=== PATIENT | female | born 1960 | race Caucasian/White ===

== ENCOUNTER 2020-06-26 12:05 | Inpatient (IN) | payer BC ==
--- NOTE | 2020-06-26 12:12 | ER Document Report ---
ED General - General Chief Complaint: Breathing Difficulty Stated Complaint: CHEST PAIN/DIFFICULTY BREATHING Time Seen by Provider: 06/26/20 12:10 Notes: Patient is a 60-year-old female with COPD that presents to the emergency department for chief complaint of shortness of breath. Patient started having increased work of breathing this morning, and got progressively worse so EMS was called. Per EMS the patient was found to have a pulse ox of 50% on room air, on their arrival, was placed on nonrebreather, but pulse ox only came up to the high 60s, so she was then placed on CPAP, and she got a pulse ox of 78%, they actually put her on Levophed for a short period of time because her blood pressure was low initially but has since improved. She is unable provide any significant meaningful history at this time due to her acute respiratory distress. Patient's daughter called to the emergency department, to give history and the patient, she apparently was recently in the hospital, and was having issues with aspiration, was placed on a different diet, yesterday she was apparently doing okay, and this started all of a sudden this morning, and she was concerned that she likely aspirated something overnight. Past Medical History: COPD Past Surgical History: Not obtainable at this time Social History: Positive for tobacco use, no alcohol or drug use Family History: Reviewed and noncontributory for presenting illness Allergies: Reviewed, see documented allergy list. REVIEW OF SYSTEMS: Other than noted above, the 12 point review of systems was reviewed with the patient and were negative, all pertinent findings are included in the HPI. PHYSICAL EXAMINATION: Vital signs reviewed, nursing noted reviewed. GENERAL: Patient is in acute respiratory distress at this time, increased work of breathing. HEAD: Atraumatic, normocephalic. EYES: Eyes appear normal, sclera anicteric, conjunctiva are normal. ENT: Moist mucous membranes. NECK: Normal range of motion, supple without lymphadenopathy LUNGS: Lung sounds diminished throughout, no acute wheezing, rhonchi or rales. HEART: Heart rate tachycardic, regular rhythm, no audible murmur EXTREMITIES: Nontender, good range of motion, no pitting or edema. NEUROLOGICAL: No focal neurological deficits. Moves all extremities spontaneously Motor and sensory grossly intact on exam. PSYCH: Patient appears anxious, but somewhat somnolent, and increased work of breathing. SKIN: Warm, Dry, normal turgor, no rashes or lesions noted on exposed skin - Related Data Allergies/Adverse Reactions: No Known Allergies Allergy (Verified 06/26/20 12:13) Past Medical History - Social History Smoking Status: Current Every Day Smoker Family History: Reviewed & Not Pertinent Physical Exam - Vital signs Vitals: BP 97/76 L 06/26/20 12:10 Course - Re-evaluation Re-evalutation: Patient seen and examined, vital signs reviewed, exam patient was in acute respiratory failure requiring noninvasive positive pressure ventilation, was initially hypoxic, 88% on BiPAP, but did improve up to 99%, and was becoming more alert on the BiPAP, she was hypotensive, given fluid bolusing, but was difficult to obtain good IV access, therefore central line was placed, and fluids were continued, prior to starting the patient on any vasopressors. Blood cultures were obtained, patient's lactic acid was elevated, greater than 6, chest x-ray demonstrated what appeared to be an aspiration pneumonitis versus pneumonia, blood work overall was reassuring with the exception of her elevated lactic acid. Her ABG, was improving while on BiPAP. Case was discussed with the hospitalist as well as the intensive care team, who accepted the patient to their service for further evaluation and management. - Vital Signs Vital signs: Temp Pulse Resp BP Pulse Ox 21 H 87/39 L 100 06/26/20 15:31 06/26/20 15:31 06/26/20 15:30 - Laboratory Results Result Diagrams: 06/26/20 12:20 06/26/20 12:20 Laboratory Results Interpreted: 06/26/20 06/26/20 06/26/20 12:20 12:20 12:20 Hgb 11.7 L MCHC 31.8 L RDW 17.5 H Lymph % (Auto) 9.2 L Seg Neutrophils % 82.3 H PT 16.4 H Carbonic Acid ABG pH ABG pCO2 ABG pO2 ABG HCO3 ABG O2 Saturation Creatinine 1.41 H Est GFR ( Amer) 46 L Est GFR (MDRD) Non-Af 38 L Glucose 136 H Lactic Acid NT-Pro-B Natriuret Pep Total Protein 5.9 L Albumin 3.0 L Urine Protein Leukocyte Esterase Rfl 06/26/20 06/26/20 06/26/20 12:20 12:20 12:34 Hgb MCHC RDW Lymph % (Auto) Seg Neutrophils % PT Carbonic Acid 1.39 H ABG pH 7.29 L ABG pCO2 46.2 H ABG pO2 70.4 L ABG HCO3 ABG O2 Saturation 92.2 L Creatinine Est GFR ( Amer) Est GFR (MDRD) Non-Af Glucose Lactic Acid 6.4 H NT-Pro-B Natriuret Pep 2020 H Total Protein Albumin Urine Protein Leukocyte Esterase Rfl 06/26/20 06/26/20 14:05 14:15 Hgb MCHC RDW Lymph % (Auto) Seg Neutrophils % PT Carbonic Acid ABG pH 7.29 L ABG pCO2 ABG pO2 141.6 H ABG HCO3 19.9 L ABG O2 Saturation 98.5 H Creatinine Est GFR ( Amer) Est GFR (MDRD) Non-Af Glucose Lactic Acid NT-Pro-B Natriuret Pep Total Protein Albumin Urine Protein 100 H Leukocyte Esterase Rfl TRACE H Critical Laboratory Results Reviewed: Yes Attending or Supervising Physician who Reviewed Labs: Dr. Enriquez - Radiology Results Critical Radiology Results Reviewed: Yes Attending or Supervising Physician who Reviewed Radiology: Dr. Enriquez Procedures - Central Line Right Internal jugular Consent obtained: Yes Central line pre-insertion: Sterile PPE donned, Chloraprep applied Central line size (Fr.): 7 Central line lumen type: Triple Anesthetic type: 1% Lidocaine Ultrasound guided: Yes CM at insertion site: 19 Line secured with sutures: Yes Central line post-insertion: Blood return from lumens, Biopatch applied, Sutured, Sterile dressing applied, Position confirmed w/ CXR Number of attempts: 1 Complications: No Critical Care Note - Critical Care Note Total time excluding time spent on procedures (mins): 38 Comments: Critical care time 38 minutes exclusive from separate billable procedures in a patient presenting is hypertensive and acute respiratory failure requiring noninvasive positive pressure ventilation, and requiring fluid resuscitation, and central line placement, discussion with multiple consultants, and ultimately admission to the hospital. Discharge - Discharge Clinical Impression: Sepsis Qualifiers: Sepsis type: sepsis due to unspecified organism Sepsis acute organ dysfunction status: unspecified Qualified Code(s): A41.9 - Sepsis, unspecified organism Acute respiratory failure Qualifiers: Respiratory failure complication: hypoxia Qualified Code(s): J96.01 - Acute respiratory failure with hypoxia Hypotension Qualifiers: Hypotension type: unspecified hypotension type Qualified Code(s): I95.9 - Hypotension, unspecified Pneumonia Qualifiers: Pneumonia type: due to unspecified organism Laterality: right Lung location: unspecified part of lung Qualified Code(s): J18.9 - Pneumonia, unspecified organism Condition: Serious Disposition: ADMITTED INPATIENT Admitting Provider: Ani (Quantitative Strategy Analyst) Unit Admitted: ICU
[2020-06-26] MEDS ORDERED: METHYLPREDNISOLONE INJ 125 MG/2 ML SDV IV ONE (12:32)
[2020-06-26] MEDS ORDERED: TERBUTALINE SULFATE INJ/PF 1 MG/1 ML SDV SUBCUT ONE (12:33)
[2020-06-26] MEDS ORDERED: MAGNESIUM SULFATE/D5W 1 GM/100 ML RTUPB IV ONE (12:34)
[2020-06-26] MEDS ORDERED: CEFEPIME 2 GM/D5W RTU 2 GM/50 ML RTUPB IV ONE (12:42)
[2020-06-26] MEDS ORDERED: VANCOMYCIN HCL INJ 1000 MG VIAL IV ONE (12:42)
--- NOTE | 2020-06-26 12:53 | RADIOLOGY REPORT (SQ) ---
EXAM DESCRIPTION: CHEST SINGLE VIEW IMAGES COMPLETED DATE/TIME: 06/26/2020 12:43 pm REASON FOR STUDY: dyspnea COMPARISON: None. EXAM PARAMETERS: NUMBER OF VIEWS: One view. TECHNIQUE: Single frontal radiographic view of the chest acquired. RADIATION DOSE: NA LIMITATIONS: None. FINDINGS: LUNGS AND PLEURA: There is extensive right-sided airspace disease. Findings are consisten t with pneumonia. Left lung field is clear. The left lung field is mildly hyperexpanded. MEDIASTINUM AND HILAR STRUCTURES: No masses. Contour normal. HEART AND VASCULAR STRUCTURES: Heart normal in size. Normal vasculature. BONES: No acute findings. HARDWARE: None in the chest. OTHER: No other significant finding. IMPRESSION: Extensive right-sided airspace disease most likely viral pneumonitis. TECHNICAL DOCUMENTATION: JOB ID: [id number] 2010 [employer]- All Rights Reserved Reading location - IP/workstation name: [email or web address]
[2020-06-26 12:56] LABS: ARTERIAL BLOOD BASE EXCESS -4.9 mmol/L; ARTERIAL BLOOD H2CO3 1.39 mmol/L (1.05-1.35); ARTERIAL BLOOD HCO3 21.7 mmol/L (20-24); ARTERIAL BLOOD O2 SATURATION 92.2 % (94-98); ARTERIAL BLOOD PCO2 46.2 mmHg (35-45); ARTERIAL BLOOD PH 7.29 (7.35-7.45); ARTERIAL BLOOD PO2 70.4 mmHg (80-100); ARTERIAL BLOOD TOTAL CO2 23.1 mmol/L (21-25)
[2020-06-26 13:03] LABS: PROTHROMBIN TIME 16.4 SEC (11.4-15.4)
[2020-06-26 13:05] LABS: ARTERIAL BLOOD FIO2 100%
[2020-06-26 13:12] LABS: ABSOLUTE LYMPHOCYTES (AUTO) 0.9 10^3/uL (0.5-4.7); ABSOLUTE MONOCYTES (AUTO) 0.8 10^3/uL (0.1-1.4); ABSOLUTE NEUT (AUTO) 7.8 10^3/uL (1.7-8.2); BASOPHILS % (AUTO) 0.3 % (0-2); HEMATOCRIT 36.8 % (36.0-47.0); HEMOGLOBIN 11.7 g/dL (12.0-15.5); LYMPHOCYTES % (AUTO) 9.2 % (13-45); MEAN CORPUSCULAR HEMOGLOBIN 27.6 pg (27.0-33.4); MEAN CORPUSCULAR HGB CONC 31.8 g/dL (32.0-36.0); MEAN CORPUSCULAR VOLUME 87 fl (80-97); MONOCYTES % (AUTO) 8.2 % (3-13); PLATELET COUNT 338 10^3/uL (150-450); RED BLOOD COUNT 4.22 10^6/uL (3.72-5.28); RED CELL DISTRIBUTION WIDTH 17.5 % (11.5-14.0); SEGMENTED NEUTROPHILS % (AUTO) 82.3 % (42-78); TOTAL CELLS COUNTED % (AUTO) 100 %; WHITE BLOOD COUNT 9.5 10^3/uL (4.0-10.5)
[2020-06-26] MEDS ORDERED: NORMAL SALINE 1000 ML 1,000 ML IV ONE ×2 (13:14→16:44)
[2020-06-26 13:25] LABS: ALKALINE PHOSPHATASE 92 U/L (38-126); ANION GAP 13 (5-19); ASPARTATE AMINO TRANSFERASE 29 U/L (14-36); BILIRUBIN,DIRECT 0.2 mg/dL (0.0-0.4); BILIRUBIN,TOTAL 0.6 mg/dL (0.2-1.3); BLOOD UREA NITROGEN 20 mg/dL (7-20); CALCIUM 8.8 mg/dL (8.4-10.2); CARBON DIOXIDE 24 mmol/L (22-30); CHLORIDE 101 mmol/L (98-107); GLUCOSE 136 mg/dL (75-110); POTASSIUM 4.6 mmol/L (3.6-5.0); TOTAL PROTEIN 5.9 g/dL (6.3-8.2)
[2020-06-26] MEDS ORDERED: RINGERS SOLUTION,LACTATED 1,000 ML IV ONE ×2 (13:35→15:13)
[2020-06-26 13:39] LABS: A TYPE INFLUENZA AG NEGATIVE (NEGATIVE); B INFLUENZA AG NEGATIVE (NEGATIVE)
[2020-06-26 14:04] LABS: TROPONIN I 0.036 ng/mL
[2020-06-26 14:28] LABS: ARTERIAL BLOOD BASE EXCESS -6.4 mmol/L; ARTERIAL BLOOD H2CO3 1.29 mmol/L (1.05-1.35); ARTERIAL BLOOD HCO3 19.9 mmol/L (20-24); ARTERIAL BLOOD O2 SATURATION 98.5 % (94-98); ARTERIAL BLOOD PCO2 42.9 mmHg (35-45); ARTERIAL BLOOD PH 7.29 (7.35-7.45); ARTERIAL BLOOD PO2 141.6 mmHg (80-100); ARTERIAL BLOOD TOTAL CO2 21.3 mmol/L (21-25)
[2020-06-26 14:29] LABS: ARTERIAL BLOOD FIO2 100%
[2020-06-26 14:45] LABS: APPEARANCE,URINE CLOUDY; BILIRUBIN,URINE NEGATIVE (NEGATIVE); GLUCOSE, URINE NEGATIVE (NEGATIVE); KETONES,URINE NEGATIVE (NEGATIVE); PROTEIN,URINE 100 mg/dL (NEGATIVE); UROBILINOGEN,URINE NEGATIVE mg/dL (<2.0)
[2020-06-26 14:47] LABS: COLOR,URINE DARK YELLOW
--- NOTE | 2020-06-26 15:16 | EKG REPORT ---
SEVERITY:- OTHERWISE NORMAL ECG - SINUS TACHYCARDIA : Confirmed by: Duke Valle MD 26-Jun-2020 15:16:13
--- NOTE | 2020-06-26 15:32 | RADIOLOGY REPORT (SQ) ---
EXAM DESCRIPTION: CHEST SINGLE VIEW IMAGES COMPLETED DATE/TIME: 06/26/2020 3:18 pm REASON FOR STUDY: er t1 central line placement COMPARISON: Earlier the same day EXAM PARAMETERS: NUMBER OF VIEWS: One view. TECHNIQUE: Single frontal radiographic view of the chest acquired. RADIATION DOSE: NA LIMITATIONS: None. FINDINGS: LUNGS AND PLEURA: A right-sided central line has been placed. Tip overlies the SVC right atrial junction. No pneumothorax. Persistent diffuse right-sided airspace disease. Possible develo ping left lower lobe infiltrate. MEDIASTINUM AND HILAR STRUCTURES: Stable. HEART AND VASCULAR STRUCTURES: Stable. BONES: No acute findings. HARDWARE: None in the chest. OTHER: No other significant finding. IMPRESSION: Interval placement a right-sided central line as described. No pneumothorax. Persisten t diffuse right-sided airspace disease. TECHNICAL DOCUMENTATION: JOB ID: [id number] 2010 [employer]- All Rights Reserved Reading location - IP/workstation name: [email or web address]
[2020-06-26] MEDS ORDERED: DEXTROSE 5%-WATER 250 ML with NOREPINEPHRINE BITARTRATE 4 MG IV PRN ×2 (16:16)
[2020-06-26] MEDS ORDERED: VANCOMYCIN HCL 0 MG in DEXTROSE 5%-WATER 250 ML IV NR (17:00)
[2020-06-26] MEDS ORDERED: NORMAL SALINE 1000 ML 3,000 ML IV ONE (17:43)
[2020-06-26] MEDS: PIPERACILLIN SODIUM/TAZOBACTAM 4.5 GM in NORMAL SALINE 100 ML IV SCH (18:13)
--- NOTE | 2020-06-26 18:18 | PDOC CONSULTATION ---
Consultation Consult Date: 06/26/20 Attending physician:: GAYATHRI VALLES Provider Consulted: HALIE DUGGAN Consult reason:: admission History of Present Illness Admission Date/PCP: 06/26/20 15:17 History of Present Illness: TRINI NORRIS is a 60 year old female with PMH of COPD on home 2 L O2 (PRN), dysphagia, seizure disorder, and recent prolonged hospitalization at [facility] for aspiration pneumonia requiring intubation (reportedly discharged about 1 week ago) who presented to the ED with shortness of breath. She tells me that, since her discharge from [facility], she has been seeing PICK PULLING MACHINE OPERATOR and has been on a strict diet of mechanical soft foods with thickened fluids. She has had no known episodes of choking or coughing after eating. She tells me that she has been adhering to her diet. She has been having progressively worsening SOB and pleuritic R-sided chest pain since 06/23/2020. She has no known sick contacts. Denies fevers/chills. States that her chronic cough is unchanged from usual and she has not had productive cough. She otherwise denies abdominal pain, diarrhea, vomiting, dysuria. She reports normal oral intake at home. Today, she felt like she just could not catch her breath so she called EMS. Per EMS, she was found to have a pulse ox of 50% on room air on their arrival, so she was placed on non-rebreather, but pulse ox only came up to the high 60s, so she was then placed on CPAP. EMS also started her on Levophed due to hypotension. Upon arrival to the ED, she was in severe acute respiratory distress, and was p laced on BIPAP. Initially, her BP was 90/60, so she was referred to the hospitalist service for admission, but upon my arrival, her BP was 60/30. She was started on sepsis protocol IVF hydration and Levophed was ordered but never started. Her BPs have since improved to 80/40 (MAP 50). ABG has improved with BIPAP as has her mentation, but her lactate has remained unchanged ~6. No other laboratory studies have been rechecked during her stay in the ED. BCx and UCx are pending. She received vancomycin/cefepime, Solu-Medrol and 3 L IVF. Past Medical History Cardiac Medical History: Reports: Hyperlipidema Pulmonary Medical History: Reports: Chronic Obstructive Pulmonary Disease (COPD) Neurological Medical History: Reports: Seizures, Other Endocrine Medical History: Reports: Hypothyroidism GI Medical History: Reports: Gastroesophageal Reflux Disease Past Surgical History Past Surgical History: Reports: Cholecystectomy, Other - brain aneurysm repair (1984) Social History Information Source: Patient Lives with: Family Smoking Status: Current Every Day Smoker - Advance Directive Resuscitation Status: Full Code Family History Family History: Reviewed & Not Pertinent Parental Family History Reviewed: Yes Children Family History Reviewed: Yes Sibling(s) Family History Reviewed.: Yes Medication/Allergy Home Medications: Albuterol Sulfate [Proair HFA Inhalation Aerosol 8.5 gm MDI] 2 puff IH Q6HP PRN 06/26/20 Alprazolam 1 mg PO TIDP PRN 06/26/20 Aspirin 81 mg PO DAILY 06/26/20 Fluticasone/Umeclidin/Vilanter [Trelegy 100-62.5-25 Mcg Ellipta 14 Dose/Dpi] 1 puff IH DAILY 06/26/20 Furosemide [Lasix 40 mg Tablet] 40 mg PO DAILY 06/26/20 Lamotrigine 100 mg PO QAM 06/26/20 Lamotrigine 150 mg PO QPM 06/26/20 Levothyroxine Sodium [Levothyroxine] 50 mcg PO DAILY 06/26/20 Pantoprazole Sodium 40 mg PO DAILY 06/26/20 Potassium Chloride 20 meq PO DAILY 06/26/20 Pravastatin Sodium 40 mg PO QHS 06/26/20 Quetiapine Fumarate [Seroquel] 100 mg PO QHS 06/26/20 Allergies/Adverse Reactions: No Known Allergies Allergy (Verified 06/26/20 12:13) Review of Systems Constitutional: PRESENT: weakness. ABSENT: fever(s) Nose, Mouth, and Throat: ABSENT: sore throat Cardiovascular: ABSENT: chest pain, orthropnea, palpitations Respiratory: PRESENT: cough - chronic, dyspnea. ABSENT: sputum Gastrointestinal: ABSENT: abdominal pain, diarrhea, vomiting Genitourinary: ABSENT: dysuria Neurological: ABSENT: dizziness, focal weakness Physical Exam Vital Signs: Temp Pulse Resp BP Pulse Ox 21 H 81/42 L 90 L 06/26/20 17:19 06/26/20 17:19 06/26/20 17:19 Intake & Output 06/25/20 06/26/20 06/27/20 06:59 06:59 06:59 Intake Total 3150 Balance 3150 Weight 90 kg Results Laboratory Results: 06/26/20 12:20 06/26/20 12:20 06/26/20 06/26/20 06/26/20 12:20 12:20 12:20 WBC 9.5 RBC 4.22 Hgb 11.7 L Hct 36.8 MCV 87 MCH 27.6 MCHC 31.8 L RDW 17.5 H Plt Count 338 Seg Neutrophils % 82.3 H Carbonic Acid HCO3/H2CO3 Ratio ABG pH ABG pCO2 ABG pO2 ABG HCO3 ABG O2 Saturation ABG Base Excess FiO2 Sodium 137.6 Potassium 4.6 Chloride 101 Carbon Dioxide 24 Anion Gap 13 BUN 20 Creatinine 1.41 H Est GFR ( Amer) 46 L Glucose 136 H Lactic Acid 6.4 H Calcium 8.8 Total Bilirubin 0.6 AST 29 Alkaline Phosphatase 92 Total Protein 5.9 L Albumin 3.0 L Urine Color Urine Appearance Urine pH Ur Specific [place] Urine Protein Urine Glucose (UA) Urine Ketones Urine Blood Urine RBC (Auto) 06/26/20 06/26/20 06/26/20 12:34 14:05 14:15 WBC RBC Hgb Hct MCV MCH MCHC RDW Plt Count Seg Neutrophils % Carbonic Acid 1.39 H 1.29 HCO3/H2CO3 Ratio 15:1 15:1 ABG pH 7.29 L 7.29 L ABG pCO2 46.2 H 42.9 ABG pO2 70.4 L 141.6 H ABG HCO3 21.7 19.9 L ABG O2 Saturation 92.2 L 98.5 H ABG Base Excess -4.9 -6.4 FiO2 100% 100% Sodium Potassium Chloride Carbon Dioxide Anion Gap BUN Creatinine Est GFR ( Amer) Glucose Lactic Acid Calcium Total Bilirubin AST Alkaline Phosphatase Total Protein Albumin Urine Color DARK YELLOW Urine Appearance CLOUDY Urine pH 5.0 Ur Specific [place] 1.020 Urine Protein 100 H Urine Glucose (UA) NEGATIVE Urine Ketones NEGATIVE Urine Blood NEGATIVE Urine RBC (Auto) 4 06/26/20 15:19 WBC RBC Hgb Hct MCV MCH MCHC RDW Plt Count Seg Neutrophils % Carbonic Acid HCO3/H2CO3 Ratio ABG pH ABG pCO2 ABG pO2 ABG HCO3 ABG O2 Saturation ABG Base Excess FiO2 Sodium Potassium Chloride Carbon Dioxide Anion Gap BUN Creatinine Est GFR ( Amer) Glucose Lactic Acid 6.0 H Calcium Total Bilirubin AST Alkaline Phosphatase Total Protein Albumin Urine Color Urine Appearance Urine pH Ur Specific [place] Urine Protein Urine Glucose (UA) Urine Ketones Urine Blood Urine RBC (Auto) 06/26/20 12:20 Troponin I 0.036 NT-Pro-B Natriuret Pep 2020 H Impressions: Chest X-Ray 06/26/20 12:11 IMPRESSION: Extensive right-sided airspace disease most likely viral pneumonitis. Assessment and Plan - Diagnosis (1) Acute respiratory failure with hypoxia and hypercapnia Is this a current diagnosis for this admission?: Yes (2) Septic shock Is this a current diagnosis for this admission?: Yes (3) ALEXIS (acute kidney injury) Is this a current diagnosis for this admission?: Yes (4) NSTEMI (non-ST elevated myocardial infarction) Is this a current diagnosis for this admission?: Yes (5) Lactic acidosis Is this a current diagnosis for this admission?: Yes (6) COPD (chronic obstructive pulmonary disease) Is this a current diagnosis for this admission?: Yes (7) Hypotension Qualifiers: Hypotension type: unspecified hypotension type Qualified Code(s): I95.9 - Hypotension, unspecified Is this a current diagnosis for this admission?: Yes (8) Pneumonia Qualifiers: Pneumonia type: due to unspecified organism Laterality: right Lung location: unspecified part of lung Qualified Code(s): J18.9 - Pneumonia, unspecified organism Is this a current diagnosis for this admission?: Yes - Plan Summary Summary: TRINI NORRIS is a 60 year old female with PMH of COPD on home 2 L O2 (PRN), dysphagia, seizure disorder, and recent prolonged hospitalization at [facility] for aspiration pneumonia requiring intubation (reportedly discharged about 1 week ago) who presented to the ED with shortness of breath. She tells me that, since her discharge from [facility], she has been seeing PICK PULLING MACHINE OPERATOR and has been on a strict diet of mechanical soft foods with thickened fluids. She has had no known episodes of choking or coughing after eating. She tells me that she has been adhering to her diet. She has been having progressively wor sening SOB and pleuritic R-sided chest pain since 06/23/2020. She has no known sick contacts. Denies fevers/chills. States that her chronic cough is unchanged from usual and she has not had productive cough. She otherwise denies abdominal pain, diarrhea, vomiting, dysuria. She reports normal oral intake at home. Acute Hypoxemic and Hypercapnic Respiratory Failure: improving - discontinue BIPAP - she is saturating ~90% on 6 L O2 via NC during my visit - wean O2 as tolerated - goal O2 saturation: 89-90% Septic Shock: she presented with tachycardia, tachypnea, hypotension and lactic acidosis. Her hypotension is persistent despite appropriate IVF resuscitation. Will recheck lactate again, but if it remains elevated with low MAPs, she needs to be started on vasopressors. Healthcare Acquired Pneumonia: evidence of R-sided lung infiltrate on CXR, unclear if this is acute or old since last hospitalization - BCx and UCx pending - start broad spectrum antibiotics with Zosyn/Vancomycin Lactic Acidosis - s/p 3 L IVF without a change in lactate and minimal improvement in BP - I have ordered another 4 L NS bolus as well as repeat lactate - consider initiation of Levophed Dysphagia: at risk for aspiration - NPO - PICK PULLING MACHINE OPERATOR consult ALEXIS: baseline kidney function is unknown, but I believe elevated Cr is related to ATN/hypoperfusion - IVF as per above NSTEMI: she denies chest pain/pressure and has no ischemic changes on EKG. Likely demand ischemia in the s/o sepsis. - trend troponin - telemetry Medical records requested from [facility]. Case discussed with ED and Peer Support Specialist. Unfortunately, I can not take this patient to the IMCU with MAPs in the 50s at this time. She is improving and I am hopeful that BP will improve over the next few hours. Repeat labs ordered. We will continue to follow along and help with management as needed. Please call with any questions or concerns. - Time Time Spent with patient: 35 or more minutes Anticipated Discharge Disposition: Home with Home Health Anticipated Discharge Timeframe: within 72 hours
--- NOTE | 2020-06-26 18:50 | RADIOLOGY REPORT (SQ) ---
EXAM DESCRIPTION: CT CHEST WITHOUT IMAGES COMPLETED DATE/TIME: 06/26/2020 6:38 pm REASON FOR STUDY: respiratory failure COMPARISON: None. TECHNIQUE: CT scan performed of the chest without intravenous contrast. Images reviewed with lung, soft tissue and bone windows. Reconstructed coronal and sagittal MPR images reviewed. All images st ored on PACS. All CT scanners at this facility use dose modulation, iterative reconstruction, and/or weight based d osing when appropriate to reduce radiation dose to as low as reasonably achievable (ALARA). [facility]: Dose Right [facility]: CareDose [facility]: Dose Right [facility]: Teradose 4D [facility]: [employer] RADIATION DOSE: CT Rad equipment meets quality standard of care and radiation dose reduction techniq ues were employed. CTDIvol: 12.5 mGy. DLP: 458 mGy-cm. mGy. LIMITATIONS: No technical limitations. FINDINGS: LUNGS AND PLEURA: Extensive ground-glass infiltrates and denser infiltrates in the right l robbie both upper and lower lobes. There are couple of small peripheral areas of ground-glass infiltrat e on the left. Small right pleural effusion. HILAR AND MEDIASTINAL STRUCTURES: No identified masses or abnormal nodes. No obvious aneurysm. HEART AND VASCULAR STRUCTURES: No aneurysm. No pericardial effusion. UPPER ABDOMEN: No significant findings. Limited exam. THYROID AND OTHER SOFT TISSUES: No masses. No adenopathy. BONES: Bold sternal fracture with apparent nonunion. HARDWARE: None in the chest. OTHER: No other significant findings. IMPRESSION: Bilateral pneumonia much more extensive on the right. Cannot exclude COVID-19 pneumonia although the presence of a pleural effusion is not typical. TECHNICAL DOCUMENTATION: JOB ID: [id number] Quality ID # [id number]: Final reports with documentation of one or more dose reduction techniques (e.g., Au tomated exposure control, adjustment of the mA and/or kV according to patient size, use of iterative reconstruction technique) 2010 [employer]- All Rights Reserved Reading location - IP/workstation name: [email or web address]
[2020-06-26] MEDS: IPRATROPIUM/ALBUTEROL 0.5-2.5 MG/3 ML AMPUL NEB SCH (20:11)
[2020-06-26 21:11] LABS: HEMATOCRIT 31.6 % (36.0-47.0); HEMOGLOBIN 9.9 g/dL (12.0-15.5); MEAN CORPUSCULAR HEMOGLOBIN 27.8 pg (27.0-33.4); MEAN CORPUSCULAR HGB CONC 31.5 g/dL (32.0-36.0); MEAN CORPUSCULAR VOLUME 89 fl (80-97); PLATELET COUNT 191 10^3/uL (150-450); RED BLOOD COUNT 3.57 10^6/uL (3.72-5.28); RED CELL DISTRIBUTION WIDTH 17.4 % (11.5-14.0); WHITE BLOOD COUNT 10.9 10^3/uL (4.0-10.5)
[2020-06-26 21:19] LABS: VENOUS BLOOD BASE EXCESS -7.5 mmol/L; VENOUS BLOOD HCO3 20.3 mmol/L (20-32); VENOUS BLOOD PCO2 51.7 mmHg (35-63); VENOUS BLOOD PH 7.21 (7.30-7.42)
[2020-06-26 21:34] LABS: ALBUMIN 2.3 g/dL (3.5-5.0); ALKALINE PHOSPHATASE 67 U/L (38-126); ANION GAP 8 (5-19); ASPARTATE AMINO TRANSFERASE 24 U/L (14-36); BILIRUBIN,DIRECT 0.1 mg/dL (0.0-0.4); BILIRUBIN,TOTAL 0.4 mg/dL (0.2-1.3); BLOOD UREA NITROGEN 17 mg/dL (7-20); CALCIUM 7.4 mg/dL (8.4-10.2); CARBON DIOXIDE 20 mmol/L (22-30); CHLORIDE 108 mmol/L (98-107); GLUCOSE 154 mg/dL (75-110); TOTAL PROTEIN 4.8 g/dL (6.3-8.2)
[2020-06-26 21:46] LABS: C-REACTIVE PROTEIN 140.9 mg/L (<10.0); CREATINE KINASE < 20 U/L (30-135)
[2020-06-26 21:47] LABS: ERYTHROCYTE SEDIMENTATION RATE 33 mm/hr (0-30)
[2020-06-27] MEDS ORDERED: ACETAMINOPHEN 325 MG TABLET PO PRN (00:16)
[2020-06-27] MEDS ORDERED: IPRATROPIUM/ALBUTEROL 0.5-2.5 MG/3 ML AMPUL NEB PRN (00:16)
[2020-06-27] MEDS ORDERED: PROMETHAZINE HCL INJ 25 MG/1 ML VIAL IV PRN (00:16)
[2020-06-27] MEDS ORDERED: ONDANSETRON HCL INJ/PF 4 MG/2 ML SDV IV PRN (00:16)
[2020-06-27] MEDS ORDERED: MAG HYDROX/AL HYDROX/SIMETH SUSP 30 ML UDCUP PO PRN (00:16)
[2020-06-27] MEDS ORDERED: TEMAZEPAM 7.5 MG CAPSULE PO PRN (00:16)
[2020-06-27] MEDS ORDERED: PIPERACILLIN/TAZOBACTAM 4.5 GM VIAL IV ONE (00:33)
[2020-06-27] MEDS: PIPERACILLIN SODIUM/TAZOBACTAM 4.5 GM in NORMAL SALINE 100 ML IV SCH ×5 (00:41→20:32)
[2020-06-27] MEDS: DEXTROSE 5%-1/2 NORMAL SALINE 1,000 ML IV PRN ×2 (00:42→14:51)
[2020-06-27] MEDS: IPRATROPIUM/ALBUTEROL 0.5-2.5 MG/3 ML AMPUL NEB SCH ×4 (00:43→19:28)
[2020-06-27] MEDS: ALPRAZOLAM 0.5 MG TABLET PO PRN ×2 (02:20→16:30)
[2020-06-27] MEDS: HEPARIN SOD (PORCINE) 5,000 UNIT/ML 1 ML VIAL SUBCUT SCH ×3 (07:24→21:17)
[2020-06-27] MEDS: LEVOTHYROXINE SODIUM 0.05 MG TABLET PO SCH (07:24)
--- NOTE | 2020-06-27 07:25 | PDOC H&P ---
History of Present Illness Admission Date/PCP: 06/26/20 15:17 History of Present Illness: As per consulting hospitalist note from the same day TRINI NORRIS is a 60 year old female with PMH of COPD on home 2 L O2 (PRN), dysphagia, seizure disorder, and recent prolonged hospitalization at [facility] for aspiration pneumonia requiring intubation (reportedly discharged about 1 week ago) who presented to the ED with shortness of breath. She tells me that, since her discharge from [facility], she has been seeing PUBLIC WORKS TECHNICIAN and has been on a strict diet of mechanical soft foods with thickened fluids. She has had no known episodes of choking or coughing after eating. She tells me that she has been adhering to her diet. She has been having progressively worsening SOB and pleu ritic R-sided chest pain since 06/23/2020. She has no known sick contacts. Denies fevers/chills. States that her chronic cough is unchanged from usual and she has not had productive cough. She otherwise denies abdominal pain, diarrhea, vomiting, dysuria. She reports normal oral intake at home. Today, she felt like she just could not catch her breath so she called EMS. Per EMS, she was found to have a pulse ox of 50% on room air on their arrival, so she was placed on non-rebreather, but pulse ox only came up to the high 60s, so she was then placed on CPAP. EMS also started her on Levophed due to hypotension. Upon arrival to the ED, she was in severe acute respiratory distress, and was placed on BIPAP. Initially, her BP was 90/60, so she was referred to the hospitalist service for admission, but upon my arrival, her BP was 60/30. She was started on sepsis protocol IVF hydration and Levophed was ordered but never started. Her BPs have since improved to 80/40 (MAP 50). ABG has improved with BIPAP as has her mentation, but her lactate has remained unchanged ~6. No other laboratory studies have been rechecked during her stay in the ED. BCx and UCx are pending. She received vancomycin/cefepime, Solu-Medrol and 3 L IVF. Past Medical History Cardiac Medical History: Reports: Hyperlipidema Pulmonary Medical History: Reports: Chronic Obstructive Pulmonary Disease (COPD) Neurological Medical History: Reports: Seizures, Other Endocrine Medical History: Reports: Hypothyroidism GI Medical History: Reports: Gastroesophageal Reflux Disease Psychiatric Medical History: Denies: Depression Past Surgical History Past Surgical History: Reports: Cholecystectomy, Other - brain aneurysm repair (1984) Social History Lives with: Family Smoking Status: Former Smoker - Advance Directive Resuscitation Status: Full Code Family History Family History: Reviewed & Not Pertinent Parental Family History Reviewed: Yes Children Family History Reviewed: Yes Sibling(s) Family History Reviewed.: Yes Medication/Allergy Home Medications: Albuterol Sulfate [Proair HFA Inhalation Aerosol 8.5 gm MDI] 2 puff IH Q6HP PRN 06/26/20 Alprazolam 1 mg PO TIDP PRN 06/26/20 Aspirin 81 mg PO DAILY 06/26/20 Fluticasone/Umeclidin/Vilanter [Trelegy 100-62.5-25 Mcg Ellipta 14 Dose/Dpi] 1 puff IH DAILY 06/26/20 Furosemide [Lasix 40 mg Tablet] 40 mg PO DAILY 06/26/20 Lamotrigine 100 mg PO QAM 06/26/20 Lamotrigine 150 mg PO QPM 06/26/20 Levothyroxine Sodium [Levothyroxine] 50 mcg PO DAILY 06/26/20 Pantoprazole Sodium 40 mg PO DAILY 06/26/20 Potassium Chloride 20 meq PO DAILY 06/26/20 Pravastatin Sodium 40 mg PO QHS 06/26/20 Quetiapine Fumarate [Seroquel] 100 mg PO QHS 06/26/20 Allergies/Adverse Reactions: No Known Allergies Allergy (Verified 06/26/20 12:13) Review of Systems Review of Systems: as per hpi Physical Exam Vital Signs: Temp Pulse Resp BP Pulse Ox 98.3 F 117 H 30 H 125/62 93 06/27/20 03:11 06/27/20 03:15 06/27/20 04:30 06/27/20 03:11 06/27/20 04:30 Intake & Output 06/26/20 06/27/20 06/28/20 06:59 06:59 06:59 Intake Total 7150 Output Total 2900 Balance 4250 Weight 91.6 kg General appearance: PRESENT: no acute distress, obese, well-developed, well- nourished Head exam: PRESENT: atraumatic, normocephalic Respiratory exam: PRESENT: decreased breath sounds, tachypnea. ABSENT: rales, rhonchi, wheezes Cardiovascular exam: PRESENT: RRR, tachycardia. ABSENT: diastolic murmur, rubs, systolic murmur GI/Abdominal exam: PRESENT: normal bowel sounds, soft. ABSENT: distended, guarding, mass, organolmegaly, rebound, tenderness Neurological exam: PRESENT: alert, awake, oriented to person, oriented to place, oriented to time, oriented to situation, CN II-XII grossly intact. ABSENT: motor sensory deficit Results Laboratory Results: 06/26/20 20:43 06/26/20 20:43 06/26/20 06/26/20 06/26/20 12:20 12: 12:20 WBC 9.5 RBC 4.22 Hgb 11.7 L Hct 36.8 MCV 87 MCH 27.6 MCHC 31.8 L RDW 17.5 H Plt Count 338 Seg Neutrophils % 82.3 H Carbonic Acid HCO3/H2CO3 Ratio ABG pH ABG pCO2 ABG pO2 ABG HCO3 ABG O2 Saturation ABG Base Excess VBG pH VBG pCO2 VBG HCO3 VBG Base Excess FiO2 Sodium 137.6 Potassium 4.6 Chloride 101 Carbon Dioxide 24 Anion Gap 13 BUN 20 Creatinine 1.41 H Est GFR ( Amer) 46 L Glucose 136 H Lactic Acid 6.4 H Calcium 8.8 Magnesium Ferritin Total Bilirubin 0.6 AST 29 Alkaline Phosphatase 92 C-Reactive Protein Total Protein 5.9 L Albumin 3.0 L Urine Color Urine Appearance Urine pH Ur Specific [place] Urine Protein Urine Glucose (UA) Urine Ketones Urine Blood Urine RBC (Auto) 06/26/20 06/26/20 06/26/20 12:34 14:05 14:15 WBC RBC Hgb Hct MCV MCH MCHC RDW Plt Count Seg Neutrophils % Carbonic Acid 1.39 H 1.29 HCO3/H2CO3 Ratio 15:1 15:1 ABG pH 7.29 L 7.29 L ABG pCO2 46.2 H 42.9 ABG pO2 70.4 L 141.6 H ABG HCO3 21.7 19.9 L ABG O2 Saturation 92.2 L 98.5 H ABG Base Excess -4.9 -6.4 VBG pH VBG pCO2 VBG HCO3 VBG Base Excess FiO2 100% 100% Sodium Potassium Chloride Carbon Dioxide Anion Gap BUN Creatinine Est GFR ( Amer) Glucose Lactic Acid Calcium Magnesium Ferritin Total Bilirubin AST Alkaline Phosphatase C-Reactive Protein Total Protein Albumin Urine Color DARK YELLOW Urine Appearance CLOUDY Urine pH 5.0 Ur Specific [place] 1.020 Urine Protein 100 H Urine Glucose (UA) NEGATIVE Urine Ketones NEGATIVE Urine Blood NEGATIVE Urine RBC (Auto) 4 06/26/20 06/26/20 06/26/20 15:19 20:43 20:43 WBC 10.9 H RBC 3.57 L Hgb 9.9 L Hct 31.6 L MCV 89 MCH 27.8 MCHC 31.5 L RDW 17.4 H Plt Count 191 Seg Neutrophils % Carbonic Acid HCO3/H2CO3 Ratio ABG pH ABG pCO2 ABG pO2 ABG HCO3 ABG O2 Saturation ABG Base Excess VBG pH VBG pCO2 VBG HCO3 VBG Base Excess FiO2 Sodium 136.3 L Potassium 5.0 Chloride 108 H Carbon Dioxide 20 L Anion Gap 8 BUN 17 Creatinine 0.74 Est GFR ( Amer) > 60 Glucose 154 H Lactic Acid 6.0 H Calcium 7.4 L Magnesium 1.6 Ferritin 80.80 Total Bilirubin 0.4 AST 24 Alkaline Phosphatase 67 C-Reactive Protein 140.9 H Total Protein 4.8 L Albumin 2.3 L Urine Color Urine Appearance Urine pH Ur Specific [place] Urine Protein Urine Glucose (UA) Urine Ketones Urine Blood Urine RBC (Auto) 06/26/20 06/26/20 06/27/20 20:43 20:43 00:53 WBC RBC Hgb Hct MCV MCH MCHC RDW Plt Count Seg Neutrophils % Carbonic Acid HCO3/H2CO3 Ratio ABG pH ABG pCO2 ABG pO2 ABG HCO3 ABG O2 Saturation ABG Base Excess VBG pH 7.21 L VBG pCO2 51.7 VBG HCO3 20.3 VBG Base Excess -7.5 FiO2 Sodium Potassium Chloride Carbon Dioxide Anion Gap BUN Creatinine Est GFR ( Amer) Glucose Lactic Acid 3.4 H 3.3 H Calcium Magnesium Ferritin Total Bilirubin AST Alkaline Phosphatase C-Reactive Protein Total Protein Albumin Urine Color Urine Appearance Urine pH Ur Specific [place] Urine Protein Urine Glucose (UA) Urine Ketones Urine Blood Urine RBC (Auto) 06/26/20 06/26/20 06/26/20 12:20 20:43 20:43 Creatine Kinase < 20 L Troponin I 0.036 < 0.012 NT-Pro-B Natriuret Pep 2020 H Impressions: Chest CT 12/23/20 00:00 IMPRESSION: Bilateral pneumonia much more extensive on the right. Cannot ex clude COVID-19 pneumonia although the presence of a pleural effusion is not typical. Chest X-Ray 06/26/20 12:11 IMPRESSION: Extensive right-sided airspace disease most likely viral pneumonitis. Assessment and Plan - Diagnosis (1) Acute respiratory failure with hypoxia and hypercapnia Is this a current diagnosis for this admission?: Yes (2) Septic shock Is this a current diagnosis for this admission?: Yes (3) ALEXIS (acute kidney injury) Is this a current diagnosis for this admission?: Yes (4) NSTEMI (non-ST elevated myocardial infarction) Is this a current diagnosis for this admission?: Yes (5) COPD (chronic obstructive pulmonary disease) Is this a current diagnosis for this admission?: Yes (6) Hypotension Qualifiers: Hypotension type: unspecified hypotension type Qualified Code(s): I95.9 - Hypotension, unspecified Is this a current diagnosis for this admission?: Yes (7) Pneumonia Qualifiers: Pneumonia type: due to unspecified organism Laterality: right Lung location: unspecified part of lung Qualified Code(s): J18.9 - Pneumonia, unspecified organism Is this a current diagnosis for this admission?: Yes - Plan Summary Summary: TRINI NORRIS is a 60 year old female with PMH of COPD on home 2 L O2 (PRN), dysphagia, seizure disorder, and recent prolonged hospitalization at [facility] for aspiration pneumonia requiring intubation (reportedly discharged about 1 week ago) who presented to the ED with shortness of breath. She tells me that, since her discharge from [facility], she has been seeing PUBLIC WORKS TECHNICIAN and has been on a strict diet of mechanical soft foods with thickened fluids. She has had no known episodes of choking or coughing after eating. She tells me that she has been adhering to her diet. She has been having progressively worsening SOB and pleuritic R-sided chest pain since 06/23/2020. She has no known sick contacts. Denies fevers/chills. States that her chronic cough is unchanged from usual and she has not had productive cough. She otherwise denies abdominal pain, diarrhea, vomiting, dysuria. She reports normal oral intake at home. Acute Hypoxemic and Hypercapnic Respiratory Failure: improving - discontinue BIPAP - she is saturating ~90% on 6 L O2 via NC during my visit - wean O2 as tolerated - goal O2 saturation: 89-90% Septic Shock: she presented with tachycardia, tachypnea, hypotension and lactic acidosis. Her hypotension is persistent despite appropriate IVF resuscitation. Will recheck lactate again, but if it remains elevated with low MAPs, she needs to be started on vasopressors. Healthcare Acquired Pneumonia: evidence of R-sided lung infiltrate on CXR, unclear if this is acute or old since last hospitalization - BCx and UCx pending - start broad spectrum antibiotics with Zosyn/Vancomycin Lactic Acidosis - s/p 3 L IVF without a change in lactate and minimal improvement in BP - I have ordered another 4 L NS bolus as well as repeat lactate - consider initiation of Levophed Dysphagia: at risk for aspiration - NPO - PUBLIC WORKS TECHNICIAN consult ALEXIS: baseline kidney function is unknown, but I believe elevated Cr is related to ATN/hypoperfusion - IVF as per above NSTEMI: she denies chest pain/pressure and has no ischemic changes on EKG. Likely demand ischemia in the s/o sepsis. - trend troponin - telemetry Medical records requested from [facility]. Case discussed with ED and Medical Billing Coder. Unfortunately, I can not take this patient to the IMCU with MAPs in the 50s at this time. She is improving and I am hopeful that BP will improve over the next few hours. Repeat labs ordered. We will continue to follow along and help with management as needed. Please call with any questions or concerns. - Time Time Spent with patient: 25-34 minutes Anticipated Discharge Disposition: Home with Home Health Anticipated Discharge Timeframe: within 72 hours
[2020-06-27] MEDS: ASPIRIN 81 MG TABLET, CHEWABLE PO SCH (09:16)
[2020-06-27] MEDS: PANTOPRAZOLE SODIUM 40 MG TABLET.DR PO SCH (09:16)
[2020-06-27] MEDS: LAMOTRIGINE 100 MG TABLET PO SCH ×2 (09:16→17:28)
[2020-06-27] MEDS: OXYCODONE-ACETAMINOPHEN 5-325 MG TABLET PO PRN ×3 (09:16→20:44)
[2020-06-27] MEDS: DOCUSATE SODIUM 100 MG CAPSULE PO SCH (09:16)
[2020-06-27] MEDS: FLUTICASONE/UMECLIDIN/VILANTER 100-62.5-25 MCG/DOSE IH SCH (09:17)
[2020-06-27 11:34] LABS: HEMATOCRIT 29.3 % (36.0-47.0); HEMOGLOBIN 9.4 g/dL (12.0-15.5); MEAN CORPUSCULAR HEMOGLOBIN 27.6 pg (27.0-33.4); MEAN CORPUSCULAR HGB CONC 32.2 g/dL (32.0-36.0); MEAN CORPUSCULAR VOLUME 86 fl (80-97); PLATELET COUNT 199 10^3/uL (150-450); RED BLOOD COUNT 3.41 10^6/uL (3.72-5.28); RED CELL DISTRIBUTION WIDTH 17.4 % (11.5-14.0); WHITE BLOOD COUNT 20.2 10^3/uL (4.0-10.5)
[2020-06-27 11:51] LABS: ALBUMIN 2.7 g/dL (3.5-5.0); ALKALINE PHOSPHATASE 72 U/L (38-126); ANION GAP 7 (5-19); ASPARTATE AMINO TRANSFERASE 23 U/L (14-36); BILIRUBIN,DIRECT 0.2 mg/dL (0.0-0.4); BILIRUBIN,TOTAL 0.4 mg/dL (0.2-1.3); BLOOD UREA NITROGEN 13 mg/dL (7-20); CALCIUM 8.6 mg/dL (8.4-10.2); CARBON DIOXIDE 25 mmol/L (22-30); CHLORIDE 108 mmol/L (98-107); GLUCOSE 114 mg/dL (75-110); POTASSIUM 4.6 mmol/L (3.6-5.0); TOTAL PROTEIN 5.4 g/dL (6.3-8.2)
--- NOTE | 2020-06-27 12:55 | RADIOLOGY REPORT (SQ) ---
EXAM DESCRIPTION: COOKIE SWALLOW IMAGES COMPLETED DATE/TIME: 06/27/2020 12:45 pm REASON FOR STUDY: hx of aspiration pnaAspiration and aspiration pneumonia following long-term intuba tion COMPARISON: None. TECHNIQUE: Videofluoroscopic swallowing examination was performed in conjunction with speech patholo gy. Videofluoroscopic imaging was obtained and reviewed and these are the findings: RADIATION DOSE: 3.8 minutes of fluoroscopy was used. 1 images saved to PACS. LIMITATIONS: None FINDINGS: The patient was brought into the fluoro room and placed upright on a modified barium swall ow chair. The patient was then given multiple consistencies mixed with barium to swallow under live fluoroscopic video guidance. According to the Speech Pathologist there was laryngeal penetration and aspiration of all liquid consistencies. IMPRESSION: LARYNGEAL PENETRATION AND TRACHEAL ASPIRATION ABOVE. PLEASE SEE SPEECH PATHOLOGIST RE PORT FOR OTHER FINDINGS AND RECOMMENDATIONS. COMMENT: Quality ID [id number]: Final reports for procedures using fluoroscopy that document radiation exp osure indices, or exposure time and number of fluorographic images (if radiation exposure indices are not available) TECHNICAL DOCUMENTATION: JOB ID: [id number] 2010 [employer]- All Rights Reserved Reading location - IP/workstation name: [email or web address] [id number]
[2020-06-27] MEDS ORDERED: VANCOMYCIN HCL 1,500 MG in DEXTROSE 5%-WATER 250 ML IV SCH (14:00)
--- NOTE | 2020-06-27 14:40 | ST Inp Modified Barium Swallow ---
Medical Diagnosis - Medical Diagnoses Medical Diagnosis Description & ICD-10 Code(s): dysphagia R13.10 - ICD-10 Tx Diagnosis Coding (1) Acute respiratory failure with hypoxia and hypercapnia ICD-10 Code(s): J96.01 - ACUTE RESPIRATORY FAILURE WITH HYPOXIA; J96.02 - ACUTE RESPIRATORY FAILURE WITH HYPERCAPNIA (2) Pneumonia ICD-10 Code(s): J18.9 - PNEUMONIA, UNSPECIFIED ORGANISM ST Inpatient MBS - General Date: 06/27/20 Date of Onset: 05/29/20 - History Medical History: per EMR: patient admitted 06/26 with shortness of breath. Prior medical history includes COPD, dysphagia, seizure disorder. Per patient, was recently hospitalized at [facility] with aspiration pneumonia requiring intubation for approximately 8 days, patient self extubated. Medications: Medications Reviewed Allergies: No known allergies - Subjective Current PO Diet: Pureed, Thickened liquids Current Symptoms: Hx of asp. pneumonia Pain: 1/5 - chest pain from pneumonia - Objective Assessment: Upright, Left Lateral - Food Trials Food Trials Used: Thin liquids, Honey-thickened liquids, [place] thick liquids, P ureed, Regular The Patient: Was Able to Self Feed - Assessment Labial Function: Within Normal Limits Lingual Function: Within Normal Limits Mandibular Function: Within Normal Limits Dentition: Dentures-Upper, Dentures-Lower Velo-Pharyngeal Function: Unremarkable Laryngeal Function: clear voicing - Pharyngeal Stage Initiation of Pharyngeal Stage: Normal Decreased Laryngeal Elevation: Yes - mild Reduced Velo-Pharyngeal Closure: no Reduced Pressure Generation: No Reduced Tongue Base Retraction: No Pre-Swallowing Pooling in Valleculae: Mild Pre-Swallowing Pooling in Pyriforms: None Reduced Thyro-Hyiod Approximation: Yes - mild Reduced Epiglottic Excursion: No Multiple Swallows With: Cleared w/ Dry Swallow Post Swallow Residuals in Valleculae: Mild - with solids Post Swallow Residuals in Pyriforms: None - Impression/Summary Laryngeal Penetration: Yes - deep penetration seen during the swallow intermittently Tracheal Aspiration: yes - aspiration seen after the swallow from uncleared penetration with all liquid textures. Aspiration was largely silent, occasional weak cough noted. Effective Clearing: partial clearing - with cued cough Ineffective Compensatory Strategies: throat clear & reswallow Patient Presents With: Pharyngeal stage dysph. - moderate to severe Risk of Aspiration: Moderate - Recommendations Solid Diet Recommendations: Mechanical Soft, Ground Meat Strict Aspitarion Precautions: Yes Dysphagia Therapy with MEAT PUMPER: Yes Recommended Techniques: Fully Upright During Meal, Small Bites and Sips Other Recommendations: Cannot make liquid recommendation at this time as all liquid textures were seen to be aspirated, and patient has history of recurrent pneumonia while already on thickened liquids. Recommend treatment to address pharyngeal swallow deficits. Discussed recommendations with MD. - Time Total Time: 30 Total Timed Minutes: 30
[2020-06-27] MEDS: VANCOMYCIN HCL 1,000 MG in DEXTROSE 5%-WATER 250 ML IV SCH ×2 (16:29→21:17)
[2020-06-27] MEDS: MORPHINE SULFATE 10 MG/ML INJ IV PRN ×2 (16:30→23:23)
--- NOTE | 2020-06-27 20:13 | Progress Note ---
Provider Note Provider Note: TRINI NORRIS is a 60 year old female with PMH of COPD on home 2 L O2, dysphagia, seizure disorder, and two recent prolonged hospitalizations at [facility] for respiratory failure due to aspiration pneumonia requiring intubation (reportedly discharged less than 1 week ago) who presented to the ED with shortness of breath. She tells me that, since her discharge from [facility], she has been seeing RESAW CARRIAGE OPERATOR and has been on a strict diet of mechanical soft foods with thickened fluids. She has had no known episodes of choking or coughing after eating. She tells me that she has been adhering to her diet. She has been having progressively worsening SOB and pleuritic R-sided chest pain since 06/23/2020. Upon presentation to [facility], she was found to be in septic shock, likely due to aspiration pneumonia. She was made NPO and RESAW CARRIAGE OPERATOR was consulted today. MBS today was concerning for intermittent silent aspiration seen with all liquid textures. Aspiration was largely silent, and only an occasional weak cough was noted. She has moderate to severe pharyngeal dysphagia. I spoke with patient and daughter at length today. They are aware of the dysphagia. She has undergone at least 4-5 MBS at this point and all have been concerning for some amount of aspiration. She is not yet ready for PEG placem ent. She tells me that she has an appointment in 1 week for GI to do esophageal dilation which she has been told could help resolve aspiration. It is unclear how much of her aspiration is due to her having had a prolonged intubation (from which she reportedly self-extubated, which may have been traumatic). I am concerned that within the last 2 months, she has been hospitalized multiple times for aspiration pneumonia. This hospitalization she aspirated after being on thickened liquids. She has been placed on IVF. She is allowed to eat solid foods with strict aspiration precautions, but not liquids. She must get pills crushed in apple sauce. She and her family will need ongoing discussions regarding a temporary PEG tube for nutrition until her dysphagia resolves. Of course, even a PEG tube will not prevent aspiration altogether and she is at high risk for future episodes of respiratory failure. She remains on Zosyn/Vancomycin for treatment of HCAP. Her lactic acidosis and ALEXIS have resolved. BP is normal. BCx show NGTD. Oxygenation is much improved in comparison to yesterday. Per her family's request, I called the [facility] [place] today to inquire about a transfer, but they are full and are not accepting transfers at this time.
[2020-06-27] MEDS: ATORVASTATIN CALCIUM 10 MG TABLET PO SCH (21:17)
[2020-06-28] MEDS: ALPRAZOLAM 0.5 MG TABLET PO PRN ×2 (00:22→08:27)
[2020-06-28] MEDS: OXYCODONE-ACETAMINOPHEN 5-325 MG TABLET PO PRN ×3 (01:51→21:41)
[2020-06-28] MEDS: PIPERACILLIN SODIUM/TAZOBACTAM 4.5 GM in NORMAL SALINE 100 ML IV SCH ×4 (02:16→21:22)
[2020-06-28] MEDS: VANCOMYCIN HCL 1,000 MG in DEXTROSE 5%-WATER 250 ML IV SCH ×3 (06:09→21:21)
[2020-06-28] MEDS: LEVOTHYROXINE SODIUM 0.05 MG TABLET PO SCH (06:10)
[2020-06-28] MEDS: HEPARIN SOD (PORCINE) 5,000 UNIT/ML 1 ML VIAL SUBCUT SCH ×3 (06:10→21:22)
[2020-06-28] MEDS: MORPHINE SULFATE 10 MG/ML INJ IV PRN ×4 (06:11→17:03)
[2020-06-28 06:32] LABS: ABSOLUTE LYMPHOCYTES (AUTO) 1.3 10^3/uL (0.5-4.7); BASOPHILS % (AUTO) 0.3 % (0-2); EOSINOPHILS % (AUTO) 0.2 % (0-6); HEMATOCRIT 26.1 % (36.0-47.0); HEMOGLOBIN 8.6 g/dL (12.0-15.5); LYMPHOCYTES % (AUTO) 9.9 % (13-45); MEAN CORPUSCULAR HEMOGLOBIN 27.9 pg (27.0-33.4); MEAN CORPUSCULAR HGB CONC 33.1 g/dL (32.0-36.0); MEAN CORPUSCULAR VOLUME 84 fl (80-97); MONOCYTES % (AUTO) 7.4 % (3-13); PLATELET COUNT 177 10^3/uL (150-450); RED BLOOD COUNT 3.09 10^6/uL (3.72-5.28); RED CELL DISTRIBUTION WIDTH 17.4 % (11.5-14.0); SEGMENTED NEUTROPHILS % (AUTO) 82.2 % (42-78); TOTAL CELLS COUNTED % (AUTO) 100 %; WHITE BLOOD COUNT 13.4 10^3/uL (4.0-10.5)
[2020-06-28 06:57] LABS: ALBUMIN 2.3 g/dL (3.5-5.0); ALKALINE PHOSPHATASE 83 U/L (38-126); ASPARTATE AMINO TRANSFERASE 17 U/L (14-36); BILIRUBIN,DIRECT 0.1 mg/dL (0.0-0.4); BILIRUBIN,TOTAL 0.4 mg/dL (0.2-1.3); BLOOD UREA NITROGEN 12 mg/dL (7-20); CALCIUM 8.3 mg/dL (8.4-10.2); GLUCOSE 99 mg/dL (75-110); PHOSPHORUS 2.5 mg/dL (2.5-4.5); POTASSIUM 4.1 mmol/L (3.6-5.0)
[2020-06-28 07:02] LABS: ANION GAP 4 (5-19); CARBON DIOXIDE 29 mmol/L (22-30); CHLORIDE 104 mmol/L (98-107)
[2020-06-28] MEDS: IPRATROPIUM/ALBUTEROL 0.5-2.5 MG/3 ML AMPUL NEB SCH ×3 (07:42→21:48)
[2020-06-28] MEDS: LAMOTRIGINE 100 MG TABLET PO SCH ×2 (08:24→17:03)
[2020-06-28] MEDS: ASPIRIN 81 MG TABLET, CHEWABLE PO SCH (10:07)
[2020-06-28] MEDS: DOCUSATE SODIUM 100 MG CAPSULE PO SCH (10:07)
[2020-06-28] MEDS: PANTOPRAZOLE SODIUM 40 MG TABLET.DR PO SCH (10:07)
[2020-06-28] MEDS: METHYLPREDNISOLONE INJ 125 MG/2 ML SDV IV SCH ×3 (10:10→21:19)
[2020-06-28] MEDS: FLUTICASONE/UMECLIDIN/VILANTER 100-62.5-25 MCG/DOSE IH SCH (10:17)
--- NOTE | 2020-06-28 10:52 | PDOC PROGRESS REPORT ---
Subjective Date:: 06/28/20 Subjective:: patient reports he pain is not controlled, having right lower belly pain she is worried about appendicitis. Denies SOB/chest pain Reason For Visit: SEPTIC SHOCK,ALEXIS Physical Exam Vital Signs: Temp Pulse Resp BP Pulse Ox 97.4 F 104 H 27 H 109/71 97 06/28/20 05:09 06/28/20 07:42 06/28/20 07:42 06/28/20 05:09 06/28/20 07:42 Intake & Output 06/27/20 06/28/20 06/29/20 06:59 06:59 06:59 Intake Total 7150 1975 1000 Output Total 2900 4020 Balance 4250 -2045 1000 Weight 91.6 kg 92.2 kg General appearance: PRESENT: no acute distress Respiratory exam: PRESENT: clear to auscultation sergio, other - on [place] O2 Cardiovascular exam: PRESENT: RRR GI/Abdominal exam: PRESENT: guarding - in RLQ otherwise soft, good bowel sounds Neurological exam: PRESENT: alert, awake Results Laboratory Results: 06/28/20 06:16 06/28/20 06:16 06/27/20 06/27/20 06/27/20 11:00 11:00 11:00 WBC 20.2 H RBC 3.41 L Hgb 9.4 L Hct 29.3 L MCV 86 MCH 27.6 MCHC 32.2 RDW 17.4 H Plt Count 199 Seg Neutrophils % Sodium 140.2 Potassium 4.6 Chloride 108 H Carbon Dioxide 25 Anion Gap 7 BUN 13 Creatinine 0.52 Est GFR ( Amer) > 60 Glucose 114 H Lactic Acid 1.7 Calcium 8.6 Phosphorus Magnesium 1.9 Total Bilirubin 0.4 AST 23 Alkaline Phosphatase 72 Total Protein 5.4 L Albumin 2.7 L TSH 06/28/20 06/28/20 06/28/20 06:16 06:16 06:16 WBC 13.4 H RBC 3.09 L Hgb 8.6 L Hct 26.1 L MCV 84 MCH 27.9 MCHC 33.1 RDW 17.4 H Plt Count 177 Seg Neutrophils % 82.2 H Sodium 137.3 Potassium 4.1 Chloride 104 Carbon Dioxide 29 Anion Gap 4 L BUN 12 Creatinine 0.55 Est GFR ( Amer) > 60 Glucose 99 Lactic Acid Calcium 8.3 L Phosphorus 2.5 Magnesium 1.7 Total Bilirubin 0.4 AST 17 Alkaline Phosphatase 83 Total Protein 5.0 L Albumin 2.3 L TSH 2.15 06/28/20 06:16 WBC RBC Hgb Hct MCV MCH MCHC RDW Plt Count Seg Neutrophils % Sodium Potassium Chloride Carbon Dioxide Anion Gap BUN Creatinine Est GFR ( Amer) Glucose Lactic Acid 1.6 Calcium Phosphorus Magnesium Total Bilirubin AST Alkaline Phosphatase Total Protein Albumin TSH 06/26/20 14:15 Catheterized Urine Urine Culture - Final NO GROWTH 2 DAYS 06/26/20 15:19 Blood Blood Culture (PCR) - Final Staphylococcus Aureus 06/26/20 06/26/20 06/26/20 12:20 20:43 20:43 Creatine Kinase < 20 L Troponin I 0.036 < 0.012 NT-Pro-B Natriuret Pep 2020 H Impressions: Chest CT 06/26/20 00:00 IMPRESSION: Bilateral pneumonia much more extensive on the right. Cannot exclude COVID-19 pneumonia although the presence of a pleural effusion is not typical. Chest X-Ray 06/26/20 12:11 IMPRESSION: Extensive right-sided airspace disease most likely viral pneumonitis. Modified Barium Swallow 06/27/20 00:00 IMPRESSION: LARYNGEAL PENETRATION AND TRACHEAL ASPIRATION ABOVE. PLEASE SEE SPEECH PATHOLOGIST REPORT FOR OTHER FINDINGS AND RECOMMENDATIONS. Assessment and Plan - Diagnosis (2) Acute respiratory failure with hypoxia and hypercapnia Is this a current diagnosis for this admission?: Yes (3) Pneumonia Qualifiers: Pneumonia type: due to unspecified organism Laterality: right Lung location: unspecified part of lung Qualified Code(s): J18.9 - Pneumonia, unsp ecified organism Is this a current diagnosis for this admission?: Yes - Plan Summary Summary: TRINI NORRIS is a 60 year old female with PMH of COPD on home 2 L O2 (PRN), dysphagia, seizure disorder, and recent prolonged hospitalization at [facility] for aspiration pneumonia requiring intubation (reportedly disc harged about 1 week ago) who presented to the ED with shortness of breath. She tells me that, since her discharge from [facility], she has been seeing EXTERNAL GRINDER TOOL and has been on a strict diet of mechanical soft foods with thickened fluids. She has had no known episodes of choking or coughing after eating. She tells me that she has been adhering to her diet. She has been having progressively worsening SOB and pleuritic R-sided chest pain since 06/23/2020. She has no known sick contacts. Denies fevers/chills. States that her chronic cough is unchanged from usual and she has not had productive cough. She otherwise denies abdominal pain, diarrhea, vomiting, dysuria. She reports normal oral intake at home. Acute on chronic Hypoxemic and Hypercapnic Respiratory Failure with aspiration vs HCA pneumonia with COPD exacerbation causing septic shock hypoxia improved, continue vanco/Zosyn, BP improved; diet per EXTERNAL GRINDER TOOL, start steroids due to COPD Dysphagia new kenneth patient, no beds for transfer per family request on 06/28 type 2 GA due to #1, continue tele Dispo: no plans for DC to home - Time Time Spent with patient: 15-24 minutes Anticipated Discharge Disposition: Home with Home Health Anticipated Discharge Timeframe: within 72 hours
[2020-06-28 13:41] LABS: VANCOMYCIN,TROUGH 11.9 ug/mL (5.0-20.0)
[2020-06-28] MEDS: ATORVASTATIN CALCIUM 10 MG TABLET PO SCH (21:19)
[2020-06-29] MEDS: OXYCODONE-ACETAMINOPHEN 5-325 MG TABLET PO PRN ×6 (01:47→22:16)
[2020-06-29] MEDS: PIPERACILLIN SODIUM/TAZOBACTAM 4.5 GM in NORMAL SALINE 100 ML IV SCH ×3 (03:34→15:06)
[2020-06-29] MEDS: VANCOMYCIN HCL 1,000 MG in DEXTROSE 5%-WATER 250 ML IV SCH ×2 (06:55→13:21)
[2020-06-29] MEDS: LEVOTHYROXINE SODIUM 0.05 MG TABLET PO SCH (06:55)
[2020-06-29] MEDS: HEPARIN SOD (PORCINE) 5,000 UNIT/ML 1 ML VIAL SUBCUT SCH ×3 (06:57→22:16)
[2020-06-29] MEDS: METHYLPREDNISOLONE INJ 125 MG/2 ML SDV IV SCH ×3 (06:57→22:15)
[2020-06-29 07:02] LABS: ABSOLUTE LYMPHOCYTES (AUTO) 0.7 10^3/uL (0.5-4.7); ABSOLUTE MONOCYTES (AUTO) 0.4 10^3/uL (0.1-1.4); ABSOLUTE NEUT (AUTO) 8.7 10^3/uL (1.7-8.2); BASOPHILS % (AUTO) 0.1 % (0-2); HEMATOCRIT 26.3 % (36.0-47.0); HEMOGLOBIN 8.7 g/dL (12.0-15.5); LYMPHOCYTES % (AUTO) 7.4 % (13-45); MEAN CORPUSCULAR HEMOGLOBIN 27.6 pg (27.0-33.4); MEAN CORPUSCULAR HGB CONC 32.9 g/dL (32.0-36.0); MEAN CORPUSCULAR VOLUME 84 fl (80-97); MONOCYTES % (AUTO) 4.4 % (3-13); PLATELET COUNT 174 10^3/uL (150-450); RED BLOOD COUNT 3.14 10^6/uL (3.72-5.28); RED CELL DISTRIBUTION WIDTH 17.2 % (11.5-14.0); SEGMENTED NEUTROPHILS % (AUTO) 88.1 % (42-78); TOTAL CELLS COUNTED % (AUTO) 100 %; WHITE BLOOD COUNT 9.8 10^3/uL (4.0-10.5)
[2020-06-29 07:41] LABS: ALBUMIN 2.5 g/dL (3.5-5.0); ALKALINE PHOSPHATASE 86 U/L (38-126); ASPARTATE AMINO TRANSFERASE 13 U/L (14-36); BILIRUBIN,DIRECT 0.1 mg/dL (0.0-0.4); BILIRUBIN,TOTAL 0.4 mg/dL (0.2-1.3); BLOOD UREA NITROGEN 11 mg/dL (7-20); CALCIUM 8.7 mg/dL (8.4-10.2); CARBON DIOXIDE 34 mmol/L (22-30); CHLORIDE 104 mmol/L (98-107); GLUCOSE 138 mg/dL (75-110); POTASSIUM 4.2 mmol/L (3.6-5.0); TOTAL PROTEIN 5.3 g/dL (6.3-8.2)
[2020-06-29 07:44] LABS: ANION GAP 3 (5-19)
[2020-06-29] MEDS: IPRATROPIUM/ALBUTEROL 0.5-2.5 MG/3 ML AMPUL NEB SCH ×3 (08:22→19:10)
[2020-06-29] MEDS: LAMOTRIGINE 100 MG TABLET PO SCH ×2 (09:13→17:36)
[2020-06-29] MEDS: DOCUSATE SODIUM 100 MG CAPSULE PO SCH (09:13)
[2020-06-29] MEDS: PANTOPRAZOLE SODIUM 40 MG TABLET.DR PO SCH (09:13)
[2020-06-29] MEDS: ASPIRIN 81 MG TABLET, CHEWABLE PO SCH (09:13)
[2020-06-29] MEDS: FLUTICASONE/UMECLIDIN/VILANTER 100-62.5-25 MCG/DOSE IH SCH (09:14)
--- NOTE | 2020-06-29 11:18 | PDOC PROGRESS REPORT ---
Subjective Date:: 06/29/20 Subjective:: patient reports abdominal pain is controlled, no concerns per RN Reason For Visit: SEPTIC SHOCK,ALEXIS Physical Exam Vital Signs: Temp Pulse Resp BP Pulse Ox 97.6 F 109 H 20 126/83 H 93 06/29/20 09:04 06/29/20 07:59 06/29/20 07:59 06/29/20 07:59 06/29/20 07:59 Intake & Output 06/28/20 06/29/20 06/30/20 06:59 06:59 06:59 Intake Total 1615 1750 Output Total 4020 3870 Balance -2405 -2120 Weight 92.2 kg 92.5 kg General appearance: PRESENT: no acute distress Respiratory exam: PRESENT: crackles, decreased breath sounds, rhonchi - in BLL on Nc O2 Cardiovascular exam: PRESENT: RRR GI/Abdominal exam: PRESENT: soft. ABSENT: tenderness Results Laboratory Results: 06/29/20 06:35 06/29/20 06:35 06/29/20 06/29/20 06:35 06:35 WBC 9.8 RBC 3.14 L Hgb 8.7 L Hct 26.3 L MCV 84 MCH 27.6 MCHC 32.9 RDW 17.2 H Plt Count 174 Seg Neutrophils % 88.1 H Sodium 140.9 Potassium 4.2 Chloride 104 Carbon Dioxide 34 H Anion Gap 3 L BUN 11 Creatinine 0.46 L Est GFR ( Amer) > 60 Glucose 138 H Calcium 8.7 Total Bilirubin 0.4 AST 13 L Alkaline Phosphatase 86 Total Protein 5.3 L Albumin 2.5 L 06/26/20 15:19 Blood Blood Culture (PCR) - Final Staphylococcus Aureus 06/26/20 14:15 Catheterized Urine Urine Culture - Final NO GROWTH 2 DAYS 06/26/20 06/26/20 06/26/20 12:20 20:43 20:43 Creatine Kinase < 20 L Troponin I 0.036 < 0.012 NT-Pro-B Natriuret Pep 2020 H Impressions: Chest CT 06/26/20 00:00 IMPRESSION: Bilateral pneumonia much more extensive on the right. Cannot exclude COVID-19 pneumonia although the presence of a pleural effusion is not typical. Chest X-Ray 06/26/20 12:11 IMPRESSION: Extensive right-sided airspace disease most likely viral pneumonitis. Modified Barium Swallow 06/27/20 00:00 IMPRESSION: LARYNGEAL PENETRATION AND TRACHEAL ASPIRATION ABOVE. PLEASE SEE SPEECH PATHOLOGIST REPORT FOR OTHER FINDINGS AND RECOMMENDATIONS. Assessment and Plan - Diagnosis (1) RLQ abdominal pain Is this a current diagnosis for this admission?: Yes (2) Acute respiratory failure with hypoxia and hypercapnia Is this a current diagnosis for this admission?: Yes (3) Pneumonia Qualifiers: Pneumonia type: due to unspecified organism Laterality: right Lung location: unspecified part of lung Qualified Code(s): J18.9 - Pneumonia, unspecified organism Is this a current diagnosis for this admission?: Yes - Plan Summary Summary: TRINI NORRIS is a 60 year old female with PMH of COPD on home 2 L O2 (PRN), dysphagia, seizure disorder, and recent prolonged hospitalization at [facility] for aspiration pneumonia requiring intubation (reportedly discharged about 1 week ago) who presented to the ED with shortness of breath. She tells me that, since her discharge from [facility], she has been seeing COPY CUTTER and has been on a strict diet of mechanical soft foods with thickened fluids. She has had no known episodes of choking or coughing after eating. She tells me that she has been adhering to her diet. She has been having progressively worsening SOB and pleuritic R-sided chest pain since 06/23/2020. She has no known sick contacts. Denies fevers/chills. States that her chronic cough is unchanged from usual and she has not had productive cough. She otherwise denies abdominal pain, diarrhea, vomiting, dysuria. She reports normal oral intake at h ome. Acute on chronic Hypoxemic and Hypercapnic Respiratory Failure with aspiration vs HCA pneumonia with COPD exacerbation causing septic shock/Metabolic encephalopathy hypoxia improved and even off BiPAP, continue vanco/Zosyn, BP improved; diet per COPY CUTTER, start steroids due to COPD. At baseline she is on room air, plan to wean off. IS/PEP ordered. Encephalopathy and septic shock have resolved Dysphagia [facility] patient, no beds for transfer per family request on 06/28 type 2 [place] due to #1, continue tele RLQ abdominal pain CT abdomen pending result -CT department notified to contact reading radiologist, she is stable on pain meds Mood disorder resume home seroquel Dispo: no plans for DC to home - Time Time Spent with patient: 15-24 minutes Anticipated Discharge Disposition: Home, Self Care Anticipated Discharge Timeframe: within 72 hours
--- NOTE | 2020-06-29 12:21 | RADIOLOGY REPORT (SQ) ---
EXAM DESCRIPTION: CT ABD/PELVIS WITH IV ONLY IMAGES COMPLETED DATE/TIME: 06/29/2020 2:08 am REASON FOR STUDY: severe RLQ pain COMPARISON: CT chest, 06/26/2020. TECHNIQUE: CT scan of the abdomen and pelvis performed using helical scanning technique with dynamic intravenous contrast injection. No oral contrast. Images reviewed with lung, soft tissue, and bone windows. Reconstructed coronal and sagittal MPR images reviewed. Delayed images for evaluation of the urinary system also acquired. All images stored on PACS. All CT scanners at this facility use dose modulation, iterative reconstruction, and/or weight based d osing when appropriate to reduce radiation dose to as low as reasonably achievable (ALARA). [facility]: Dose Right [facility]: CareDose [facility]: Dose Right [facility]: Teradose 4D [facility]: DataEmail Group CONTRAST TYPE AND DOSE: 100 mL Omnipaque 350- low osmolar. RENAL FUNCTION: GFR > 60. RADIATION DOSE: CT Rad equipment meets quality standard of care and radiation dose reduction techniq ues were employed. CTDIvol: 13.0 - 18.0 mGy. DLP: 1653 mGy-cm.. LIMITATIONS: None. FINDINGS: LOWER CHEST: Consolidation in the right lower lobe and right middle lobe unchanged from pr ior. Small right effusion. Atelectasis at the left lung base with small left effusion increased fro m prior. Moderate cardiomegaly. Trace pericardial effusion. LIVER: Liver has normal size and contour. There is mild diffuse hepatic steatosis. No focal hepatic mass. Hepatic and portal veins are patent. No biliary ductal dilation. SPLEEN: Normal size. No focal lesions. PANCREAS: No masses. No significant calcifications. No adjacent inflammation or peripancreatic fluid collections. Pancreatic duct not dilated. GALLBLADDER: Surgically absent. ADRENAL GLANDS: No significant masses or asymmetry. RIGHT KIDNEY AND URETER: No solid masses. No significant calcifications. No hydronephrosis or hyd roureter. LEFT KIDNEY AND URETER: No solid masses. No significant calcifications. No hydronephrosis or hydr oureter. AORTA AND VESSELS: No aneurysm. No dissection. Renal arteries, SMA, celiac without stenosis. RETROPERITONEUM: No retroperitoneal adenopathy, hemorrhage or masses. BOWEL AND PERITONEAL CAVITY: There is no bowel obstruction. Just below the ileocecal valve there is a soft tissue mass measuring 2.8 x 2.2 cm which appears to represent a polypoid lesion. This may be related to or just below the ileocecal valve. No evidence of obstruction. There is also an addition al 1 cm lesion at the hepatic flexure which may represent tumefactive stool or another polypoid lesio n. Sigmoid diverticulosis without evidence of diverticulitis. No significant inflammatory change. No ascites or pneumoperitoneum. APPENDIX: Normal. PELVIS: No mass. No free fluid. Normal bladder. ABDOMINAL WALL: No masses. No hernias. BONES: No significant or acute findings. OTHER: No other significant finding. IMPRESSION: 1. Soft tissue polypoid mass in the cecum just below the ileocecal valve suspicious for a colon polyp or possibly malignancy. Correlation with colonoscopy is recommended. No bowel obstruction. 2. Possible additional polypoid lesion versus tumefactive stool at the hepatic flexure. This also ca n be evaluated with colonoscopy. 3. Mild hepatic steatosis. 4. Multifocal pneumonia with interval development of a small right pleural effusion. TECHNICAL DOCUMENTATION: JOB ID: [id number] Quality ID # [id number]: Final reports with documentation of one or more dose reduction techniques (e.g., Au tomated exposure control, adjustment of the mA and/or kV according to patient size, use of iterative reconstruction technique) 2010 [employer]- All Rights Reserved Reading location - IP/workstation name: [email or web address]
[2020-06-29] MEDS ORDERED: MAGNESIUM HYDROXIDE SUSP 30 ML UDCUP PO ONE (12:34)
[2020-06-29] MEDS: FUROSEMIDE 40 MG TABLET PO SCH (13:20)
[2020-06-29] MEDS: ALPRAZOLAM 0.5 MG TABLET PO PRN ×2 (13:21→22:16)
[2020-06-29] MEDS ORDERED: MAGNESIUM HYDROXIDE SUSP 30 ML UDCUP ONE (15:05)
[2020-06-29] MEDS ORDERED: QUETIAPINE FUMARATE 100 MG TABLET PO SCH (22:00)
[2020-06-29] MEDS: ATORVASTATIN CALCIUM 10 MG TABLET PO SCH (22:16)
[2020-06-29] MEDS: AMOXICILLIN TR/POT CLAVULANATE 875-125 MG TAB PO SCH (22:16)
[2020-06-30] MEDS: OXYCODONE-ACETAMINOPHEN 5-325 MG TABLET PO PRN ×2 (03:39→07:56)
[2020-06-30] MEDS: METHYLPREDNISOLONE INJ 125 MG/2 ML SDV IV SCH ×3 (07:05→22:53)
[2020-06-30] MEDS: HEPARIN SOD (PORCINE) 5,000 UNIT/ML 1 ML VIAL SUBCUT SCH ×3 (07:05→22:54)
[2020-06-30] MEDS: LEVOTHYROXINE SODIUM 0.05 MG TABLET PO SCH (07:06)
[2020-06-30] MEDS: LAMOTRIGINE 100 MG TABLET PO SCH (07:56)
[2020-06-30 07:59] LABS: HEMATOCRIT 25.3 % (36.0-47.0); HEMOGLOBIN 8.4 g/dL (12.0-15.5); MEAN CORPUSCULAR HEMOGLOBIN 27.9 pg (27.0-33.4); MEAN CORPUSCULAR HGB CONC 33.3 g/dL (32.0-36.0); MEAN CORPUSCULAR VOLUME 84 fl (80-97); PLATELET COUNT 182 10^3/uL (150-450); RED BLOOD COUNT 3.01 10^6/uL (3.72-5.28); RED CELL DISTRIBUTION WIDTH 17.1 % (11.5-14.0); WHITE BLOOD COUNT 8.9 10^3/uL (4.0-10.5)
[2020-06-30 08:13] LABS: ALBUMIN 2.5 g/dL (3.5-5.0); ALKALINE PHOSPHATASE 81 U/L (38-126); ASPARTATE AMINO TRANSFERASE 12 U/L (14-36); BILIRUBIN,DIRECT 0.2 mg/dL (0.0-0.4); BILIRUBIN,TOTAL 0.3 mg/dL (0.2-1.3); BLOOD UREA NITROGEN 14 mg/dL (7-20); CALCIUM 8.6 mg/dL (8.4-10.2); GLUCOSE 154 mg/dL (75-110); POTASSIUM 3.8 mmol/L (3.6-5.0); TOTAL PROTEIN 5.2 g/dL (6.3-8.2)
[2020-06-30 08:16] LABS: CARBON DIOXIDE 39 mmol/L (22-30); CHLORIDE 101 mmol/L (98-107)
[2020-06-30 08:27] LABS: ANION GAP 3 (5-19); C-REACTIVE PROTEIN 137.8 mg/L (<10.0)
[2020-06-30] MEDS: IPRATROPIUM/ALBUTEROL 0.5-2.5 MG/3 ML AMPUL NEB SCH ×3 (08:28→19:53)
[2020-06-30 09:24] LABS: ABSOLUTE MONOCYTES # (MANUAL) 0.3 10^3/uL (0.1-1.4); BASOPHILS % (MANUAL) 0 % (0-2); EOSINOPHILS % (MANUAL) 0 % (0-6); LYMPHOCYTES % (MANUAL) 11 % (13-45); MONOCYTES % (MANUAL) 3 % (3-13); SEGMENTED NEUTROPHILS % (MAN) 86 % (42-78); TOTAL CELLS COUNTED 100
[2020-06-30 09:25] LABS: ANISOCYTOSIS 1+; OVALOCYTES SLIGHT; PLATELET COMMENT ADEQUATE
[2020-06-30] MEDS ORDERED: ALPRAZOLAM 0.5 MG TABLET PO SCH (10:00)
--- NOTE | 2020-06-30 10:13 | PDOC CONSULTATION ---
Consultation Consult Date: 06/30/20 Provider Consulted: DULCE LANZA Consult reason:: right lower quadrant pain History of Present Illness Admission Date/PCP: 06/26/20 15:17 History of Present Illness: TRINI NORRIS is a 60 year old female COPD on home 2 L O2 (PRN), dysphagia, seizure disorder, and recent prolonged hospitalization at [facility] for aspiration pneumonia requiring intubation (reportedly discharged about 1 week ago diet to the current admission) who presented to the ED with shortness of breath and admitted on 06/27/2020 with respiratory depression. She was found to have bilateral pneumonia, hypoxia, severe distress. Eventually, the patient improved with IV antibiotics and oxygen therapy and currently she is on oral Augmentin and oxygen per nasal cannula in fair respiratory conditions. The patient's been complaining of right-sided abdominal pain, a CT scan abdomen pelvis was done yesterday June 29 demonstrating a polyp in the cecum. In addition, the patient is a history of 2 previous colonoscopies the most recent done 3 years ago which demonstrated multiple polyps, benign according to the patient. Past Medical History Cardiac Medical History: Reports: Hyperlipidema Pulmonary Medical History: Reports: Chronic Obstructive Pulmonary Disease (COPD) Neurological Medical History: Reports: Seizures, Other Endocrine Medical History: Reports: Hypothyroidism GI Medical History: Reports: Gastroesophageal Reflux Disease Psychiatric Medical History: Denies: Depression Past Surgical History Past Surgical History: Reports: Cholecystectomy, Other - brain aneurysm repair (1984) Social History Lives with: Family Smoking Status: Former Smoker - Advance Directive Resuscitation Status: Full Code Family History Family History: Reviewed & Not Pertinent Parental Family History Reviewed: No Children Family History Reviewed: No Sibling(s) Family History Reviewed.: No Medication/Allergy Home Medications: Albuterol Sulfate [Proair HFA Inhalation Aerosol 8.5 gm MDI] 2 puff IH Q6HP PRN 06/26/20 Alprazolam 1 mg PO TIDP PRN 06/26/20 Aspirin 81 mg PO DAILY 06/26/20 Fluticasone/Umeclidin/Vilanter [Trelegy 100-62.5-25 Mcg Ellipta 14 Dose/Dpi] 1 puff IH DAILY 06/26/20 Furosemide [Lasix 40 mg Tablet] 40 mg PO DAILY 06/26/20 Lamotrigine 100 mg PO QAM 06/26/20 Lamotrigine 150 mg PO QPM 06/26/20 Levothyroxine Sodium [Levothyroxine] 50 mcg PO DAILY 06/26/20 Pantoprazole Sodium 40 mg PO DAILY 06/26/20 Potassium Chloride 20 meq PO DAILY 06/26/20 Pravastatin Sodium 40 mg PO QHS 06/26/20 Quetiapine Fumarate [Seroquel] 100 mg PO QHS 06/26/20 Allergies/Adverse Reactions: No Known Allergies Allergy (Verified 06/26/20 12:13) Physical Exam Vital Signs: Temp Pulse Resp BP Pulse Ox 97.6 F 88 18 116/61 93 06/30/20 08:00 06/30/20 07:00 06/30/20 03:42 06/30/20 03:42 06/30/20 03:42 Intake & Output 06/29/20 06/30/20 07/01/20 06:59 06:59 06:59 Intake Total 1750 1325 Output Total 3870 2400 Balance -2120 -1075 Weight 92.5 kg 89.7 kg General appearance: PRESENT: mild distress, obese Head exam: PRESENT: atraumatic Eye exam: PRESENT: EOMI Mouth exam: PRESENT: neck supple Neck exam: PRESENT: full ROM Respiratory exam: PRESENT: clear to auscultation sergio Cardiovascular exam: PRESENT: RRR GI/Abdominal exam: PRESENT: soft, tenderness - RLQ Rectal exam: PRESENT: deferred Neurological exam: PRESENT: alert, awake, oriented to situation, CN II-XII grossly intact Psychiatric exam: PRESENT: appropriate affect Skin exam: PRESENT: warm Results Laboratory Results: 06/30/20 05:55 06/30/20 05:55 06/30/20 06/30/20 05:55 05:55 WBC 8.9 RBC 3.01 L Hgb 8.4 L Hct 25.3 L MCV 84 MCH 27.9 MCHC 33.3 RDW 17.1 H Plt Count 182 Seg Neutrophils % Not Reportable Sodium 142.8 Potassium 3.8 Chloride 101 Carbon Dioxide 39 H Anion Gap 3 L BUN 14 Creatinine 0.55 Est GFR ( Amer) > 60 Glucose 154 H Calcium 8.6 Total Bilirubin 0.3 AST 12 L Alkaline Phosphatase 81 C-Reactive Protein 137.8 H Total Protein 5.2 L Albumin 2.5 L 06/26/20 15:19 Blood Blood Culture (PCR) - Final Staphylococcus Aureus 06/26/20 15:19 Blood Blood Culture - Final Staphylococcus Aureus 06/26/20 06/26/20 06/26/20 12:20 20:43 20:43 Creatine Kinase < 20 L Troponin I 0.036 < 0.012 NT-Pro-B Natriuret Pep 2020 H Impressions: Chest CT 06/26/20 00:00 IMPRESSION: Bilateral pneumonia much more extensive on the right. Cannot exclude COVID-19 pneumonia although the presence of a pleural effusion is not typical. Chest X-Ray 06/26/20 12:11 IMPRESSION: Extensive right-sided airspace disease most likely viral pneumonitis. Modified Barium Swallow 06/27/20 00:00 IMPRESSION: LARYNGEAL PENETRATION AND TRACHEAL ASPIRATION ABOVE. PLEASE SEE SPEECH PATHOLOGIST REPORT FOR OTHER FINDINGS AND RECOMMENDATIONS. Abdomen/Pelvis CT 06/29/20 02:45 IMPRESSION: 1. Soft tissue polypoid mass in the cecum just below the ileocecal valve suspicious for a colon polyp or possibly malignancy. Correlation with colonoscopy is recommended. No bowel obstruction. 2. Possible additional polypoid lesion versus tumefactive stool at the hepatic flexure. This also can be evaluated with colonoscopy. 3. Mild hepatic steatosis. 4. Multifocal pneumonia with interval development of a small right pleural effusion. Assessment & Plan - Diagnosis (1) Colonic mass Is this a current diagnosis for this admission?: Yes (2) Acute respiratory failure Qualifiers: Respiratory failure complication: hypoxia Qualified Code(s): J96.01 - Acute respiratory failure with hypoxia (3) COPD (chronic obstructive pulmonary disease) Qualifiers: COPD type: COPD with acute exacerbation Qualified Code(s): J44.1 - Chronic obstructive pulmonary disease with (acute) exacerbation Is this a current diagnosis for this admission?: Yes (4) Pneumonia Qualifiers: Pneumonia type: aspiration pneumonia Laterality: right Lung location: unspecified part of lung Is this a current diagnosis for this admission?: Yes (5) RLQ abdominal pain Is this a current diagnosis for this admission?: Yes - Plan Summary Plan Summary: Assessment: History of COPD, bilateral pneumonia, recent discharge from outside hospital following endotracheal intubation for respiratory failure Patient admitted on 04/27 with an exacerbation of respiratory failure, now improved on 5 L oxygen per nasal cannula Patient complaining of right-sided abdominal pain CT scan abdomen pelvis revealing a right cecal mass History of previous colonoscopies positive for multiple colon polyps, benign according to the patient Review of blood work reveals mild anemia with H&H of 8.4 and 25.3, respectively Modified barium swallow demonstrates tracheal aspiration with all consistencies of fluid, cause unknown Plan: NG tube placement for bowel prep Bowel prep today Colonoscopy in a.m. Procedure, risk, benefits, complications, risks, explained to the patient, including stroke, heart attack, , she understands all the above, her questions were answered, and she decides to proceed
[2020-06-30] MEDS: DOCUSATE SODIUM 100 MG CAPSULE PO SCH (10:32)
[2020-06-30] MEDS: PANTOPRAZOLE SODIUM 40 MG TABLET.DR PO SCH (10:40)
[2020-06-30] MEDS: FUROSEMIDE 40 MG TABLET PO SCH (10:40)
[2020-06-30] MEDS: GUAIFENESIN 600 MG TABLET.SA PO SCH ×2 (10:40→22:52)
[2020-06-30] MEDS: AMOXICILLIN TR/POT CLAVULANATE 875-125 MG TAB PO SCH (10:40)
[2020-06-30] MEDS: ASPIRIN 81 MG TABLET, CHEWABLE PO SCH (10:40)
[2020-06-30] MEDS: FLUTICASONE/UMECLIDIN/VILANTER 100-62.5-25 MCG/DOSE IH SCH (10:41)
[2020-06-30] MEDS ORDERED: PHARMACY COMMUNICATION ORDER MC NR (12:15)
[2020-06-30] MEDS ORDERED: TEMAZEPAM 7.5 MG CAPSULE NG PRN (12:30)
[2020-06-30] MEDS ORDERED: ACETAMINOPHEN 325 MG TABLET NG PRN (12:30)
[2020-06-30] MEDS ORDERED: MAG HYDROX/AL HYDROX/SIMETH SUSP 30 ML UDCUP NG PRN (12:30)
[2020-06-30] MEDS ORDERED: MINERAL OIL ENEMA 133 ML PR SCH (13:00)
[2020-06-30] MEDS ORDERED: DEXTROSE 40% GEL 15 GM TUBE PO PRN ×2 (13:13)
[2020-06-30] MEDS ORDERED: GLUCAGON,HUMAN RECOMB 1 MG INJ SUBCUT PRN (13:13)
[2020-06-30] MEDS ORDERED: DEXTROSE 50%-WATER 25 GM/50 ML DISP.SYRIN IV PRN ×2 (13:13)
--- NOTE | 2020-06-30 13:22 | PDOC PROGRESS REPORT ---
Subjective Date:: 06/30/20 Subjective:: concerned about her ct results, wants scheduled ativan Reason For Visit: SEPTIC SHOCK,ALEXIS Physical Exam Vital Signs: Temp Pulse Resp BP Pulse Ox 97.6 F 102 H 18 116/61 90 L 06/30/20 08:00 06/30/20 08:28 06/30/20 08:28 06/30/20 03:42 06/30/20 08:28 Intake & Output 06/29/20 06/30/20 07/01/20 06:59 06:59 06:59 Intake Total 1750 1325 Output Total 3870 2400 Balance -2120 -1075 Weight 92.5 kg 89.7 kg General appearance: PRESENT: no acute distress Respiratory exam: PRESENT: rhonchi - on4L Cardiovascular exam: PRESENT: RRR GI/Abdominal exam: PRESENT: soft, tenderness - ruq, rlq Results Laboratory Results: 06/30/20 05:55 06/30/20 05:55 06/30/20 06/30/20 05:55 05:55 WBC 8.9 RBC 3.01 L Hgb 8.4 L Hct 25.3 L MCV 84 MCH 27.9 MCHC 33.3 RDW 17.1 H Plt Count 182 Seg Neutrophils % Not Reportable Sodium 142.8 Potassium 3.8 Chloride 101 Carbon Dioxide 39 H Anion Gap 3 L BUN 14 Creatinine 0.55 Est GFR ( Amer) > 60 Glucose 154 H Calcium 8.6 Total Bilirubin 0.3 AST 12 L Alkaline Phosphatase 81 C-Reactive Protein 137.8 H Total Protein 5.2 L Albumin 2.5 L 06/26/20 15:19 Blood Blood Culture (PCR) - Final Staphylococcus Aureus 06/26/20 15:19 Blood Blood Culture - Final Staphylococcus Aureus 06/26/20 06/26/20 06/26/20 12:20 20:43 20:43 Creatine Kinase < 20 L Troponin I 0.036 < 0.012 NT-Pro-B Natriuret Pep 2020 H Impressions: Chest CT 06/26/20 00:00 IMPRESSION: Bilateral pneumonia much more extensive on the right. Cannot exclude COVID-19 pneumonia although the presence of a pleural effusion is not typical. Chest X-Ray 06/26/20 12:11 IMPRESSION: Extensive right-sided airspace disease most likely viral pneu monitis. Modified Barium Swallow 06/27/20 00:00 IMPRESSION: LARYNGEAL PENETRATION AND TRACHEAL ASPIRATION ABOVE. PLEASE SEE SPEECH PATHOLOGIST REPORT FOR OTHER FINDINGS AND RECOMMENDATIONS. Abdomen/Pelvis CT 06/29/20 02:45 IMPRESSION: 1. Soft tissue polypoid mass in the cecum just below the ileocecal valve suspicious for a colon polyp or possibly malignancy. Correlation with colonoscopy is recommended. No bowel obstruction. 2. Possible additional polypoid lesion versus tumefactive stool at the hepatic flexure. This also can be evaluated with colonoscopy. 3. Mild hepatic steatosis. 4. Multifocal pneumonia with interval development of a small right pleural effusion. Assessment and Plan - Diagnosis (1) RLQ abdominal pain Is this a current diagnosis for this admission?: Yes (2) Acute respiratory failure with hypoxia and hypercapnia Is this a current diagnosis for this admission?: Yes (3) Pneumonia Qualifiers: Pneumonia type: aspiration pneumonia Laterality: right Lung location: unspecified part of lung Is this a current diagnosis for this admission?: Yes - Plan Summary Summary: TRINI NORRIS is a 60 year old female with PMH of COPD on home 2 L O2 (PRN), dysphagia, seizure disorder, and recent prolonged hospitalization at [facility] for aspiration pneumonia requiring intubation (reportedly discharged about 1 week ago) who presented to the ED with shortness of breath. She tells me that, since her discharge from [facility], she has been seeing STAFF CLIMATE SCIENTIST and has been on a strict diet of mechanical soft foods with thickened fluids. She has had no known episodes of choking or coughing after eating. She tells me that she has been adhering to her diet. She has been having progressively worsening SOB and pleuritic R-sided chest pain since 06/23/2020. She has no known sick contacts. Denies fevers/chills. States that her chronic cough is unchanged from usual and she has not had productive cough. She otherwise denies abdominal pain, diarrhea, vomiting, dysuria. She reports normal oral intake at home. Acute on chronic Hypoxemic and Hypercapnic Respiratory Failure with aspiration vs HCA pneumonia with COPD exacerbation causing septic shock/Metabolic encephalopathy hypoxia improved and even off BiPAP, continue vanco/Zosyn, BP improved; diet per STAFF CLIMATE SCIENTIST, continue steroids due to COPD. At baseline she is on 2L PRN, plan to wean off. IS/PEP ordered. Encephalopathy and septic shock have resolved, remains on 4L, switch to augmentin, stop lasix, start mucinex. STAFF CLIMATE SCIENTIST needs re-evaluation Dysphagia new [facility] patient, no beds for transfer per family request on 06/28 type 2 [place] due to #1 RLQ abdominal pain mass suspected, C-scope in am per gen surg Mood disorder resume home seroquel Bacteremia recheck BCx, shows MSSA, hence will need augmentin for total of 14d Dispo: anticipate DC at the end of the week - Time Time Spent with patient: 25-34 minutes Anticipated Discharge Disposition: Home, Self Care Anticipated Discharge Timeframe: within 72 hours - plan D/W daughter over phone
[2020-06-30] MEDS ORDERED: PEG 3350/NA SULF,BICARB,CL/KCL 4000 ML NG ONE (15:00)
[2020-06-30] MEDS ORDERED: BISACODYL 5 MG TABEC PO ONE (15:00)
--- NOTE | 2020-06-30 15:43 | RADIOLOGY REPORT (SQ) ---
EXAM DESCRIPTION: KUB/ABDOMEN (SINGLE VIEW) IMAGES COMPLETED DATE/TIME: 06/30/2020 1:37 pm REASON FOR STUDY: Check Placement of NG Tube COMPARISON: CT abdomen and pelvis, 06/29/2020. NUMBER OF VIEWS: One view. TECHNIQUE: Supine radiographic image of the abdomen acquired. LIMITATIONS: None. FINDINGS: BOWEL GAS PATTERN: No dilated loops of bowel. Enteric contrast has progressed to the luna sverse and descending colon partially visualized. CALCIFICATIONS: No suspicious calcifications. SOFT TISSUES: No gross mass or suggestion of organomegaly. HARDWARE: Esophagogastric tube tip and side-hole are below the GE junction within the stomach. Centr al venous catheter with tip at the cavoatrial junction. BONES: No acute fracture. No worrisome bone lesions. OTHER: No other significant finding. IMPRESSION: Esophagogastric tube tip and side-hole are below the diaphragm in the stomach. Enteric contrast has progressed to the transverse and descending colon. TECHNICAL DOCUMENTATION: JOB ID: [id number] 2010 [employer]- All Rights Reserved Reading location - IP/workstation name: [email or web address]
[2020-06-30] MEDS: OXYCODONE-ACETAMINOPHEN 5-325 MG TABLET NG PRN ×2 (15:51→20:17)
[2020-06-30] MEDS: ALPRAZOLAM 0.5 MG TABLET NG SCH ×2 (15:52→17:56)
[2020-06-30] MEDS: LAMOTRIGINE 100 MG TABLET NG SCH (17:56)
[2020-06-30] MEDS ORDERED: AMOXICILLIN TR/POT CLAVULANATE 875-125 MG TAB NG SCH (22:00)
[2020-06-30] MEDS ORDERED: ALPRAZOLAM 0.5 MG TABLET NG ONE (22:45)
[2020-06-30] MEDS: ATORVASTATIN CALCIUM 10 MG TABLET NG SCH (22:53)
[2020-06-30] MEDS: QUETIAPINE FUMARATE 100 MG TABLET NG SCH (22:53)
[2020-07-01] MEDS: OXYCODONE-ACETAMINOPHEN 5-325 MG TABLET NG PRN ×4 (00:21→19:49)
[2020-07-01] MEDS ORDERED: VANCOMYCIN HCL 0 MG in DEXTROSE 5%-WATER 250 ML IV NR (02:30)
[2020-07-01] MEDS ORDERED: PROPOFOL INJ 200 MG/20 ML VIAL IV ONE (06:45)
[2020-07-01] MEDS: LEVOTHYROXINE SODIUM 0.05 MG TABLET NG SCH (06:53)
[2020-07-01] MEDS: HEPARIN SOD (PORCINE) 5,000 UNIT/ML 1 ML VIAL SUBCUT SCH ×3 (06:53→23:09)
[2020-07-01] MEDS: METHYLPREDNISOLONE INJ 125 MG/2 ML SDV IV SCH ×3 (07:23→23:09)
[2020-07-01] MEDS ORDERED: PROMETHAZINE HCL INJ 25 MG/1 ML VIAL IV PRN ×2 (08:00→09:27)
[2020-07-01] MEDS ORDERED: ONDANSETRON HCL INJ/PF 4 MG/2 ML SDV IV PRN (08:00)
[2020-07-01] MEDS: IPRATROPIUM/ALBUTEROL 0.5-2.5 MG/3 ML AMPUL NEB SCH ×3 (08:00→19:53)
[2020-07-01] MEDS: LAMOTRIGINE 100 MG TABLET NG SCH ×2 (08:38→18:10)
[2020-07-01 09:14] LABS: ALBUMIN 2.8 g/dL (3.5-5.0); ALKALINE PHOSPHATASE 81 U/L (38-126); ASPARTATE AMINO TRANSFERASE 17 U/L (14-36); BILIRUBIN,DIRECT 0.3 mg/dL (0.0-0.4); BILIRUBIN,TOTAL 0.4 mg/dL (0.2-1.3); BLOOD UREA NITROGEN 18 mg/dL (7-20); C-REACTIVE PROTEIN 45.9 mg/L (<10.0); CALCIUM 8.5 mg/dL (8.4-10.2); CHLORIDE 96 mmol/L (98-107); GLUCOSE 118 mg/dL (75-110); POTASSIUM 3.7 mmol/L (3.6-5.0); TOTAL PROTEIN 5.6 g/dL (6.3-8.2)
[2020-07-01 09:23] LABS: ANION GAP 9 (5-19); CARBON DIOXIDE 37 mmol/L (22-30)
[2020-07-01] MEDS ORDERED: EPINEPHRINE INJ 1 MG/10 ML DISP.SYRIN ONE (09:27)
[2020-07-01] MEDS ORDERED: FENTANYL CITRATE INJ/PF 100 MCG/2 ML AMPUL IV PRN ×3 (09:27)
[2020-07-01] MEDS ORDERED: DIPHENHYDRAMINE HCL 50 MG/ML VIAL IV PRN (09:27)
[2020-07-01] MEDS ORDERED: PANTOPRAZOLE SODIUM 40 MG PACKET.DR NG SCH (10:00)
[2020-07-01] MEDS ORDERED: FUROSEMIDE 40 MG TABLET NG SCH (10:00)
[2020-07-01] MEDS ORDERED: DOCUSATE SODIUM 100 MG/10 ML UDC NG SCH (10:00)
[2020-07-01] MEDS: VANCOMYCIN HCL 1,250 MG in DEXTROSE 5%-WATER 250 ML IV SCH ×2 (10:15→18:11)
--- NOTE | 2020-07-01 10:38 | Operative Report ---
Nonrecallable Operative Report DATE OF SURGERY: 07/01/20 PREOPERATIVE DIAGNOSIS: right lower quadrant pain; suspected mass of the cecum POSTOPERATIVE DIAGNOSIS: few sigmoid diverticoli, otherwise normal colonoscopy to cecum OPERATION: Colonoscopy with biopsy and inking SURGEON: DULCE LANZA ANESTHESIA: LMAC TISSUE REMOVED OR ALTERED: biopsy ascending colon mucosa w/ inking COMPLICATIONS: None ESTIMATED BLOOD LOSS: None INTRAOPERATIVE FINDINGS: Scattered sigmoid diverticuli, normal mucosa to cecum, normal ileocecal valve and appendiceal orifice, no mass identified, questionable mucosal fullness in the ascending colon covered with normal mucosa, biopsies obtained PROCEDURE: The colonoscopy was performed in surgery, the patient was placed in the lateral decubitus, and IV sedation was provided by the anesthesiologist. The scope was inserted into the rectum and the several segments of the colon up to the cecum. The preparation was good: no masses, polyps, strictures, mucosal changes were noted. A mucosal fullness of the ascending colon covered with normal mucosa was identified and biopsies were taken with inking . A few scattered diverticula were noted at the level of the the sigmoid, the rectum was inspected, the scope could not be retroflexed: However, no lesions were identified and no hemorrhoids seen. The scope was then slowly withdrawn from the cecum to rectum for a duration of approximately 20 minutes and extracted from the rectum. The patient tolerated procedure well and transferred to the recovery room in satisfactory conditions.
--- NOTE | 2020-07-01 10:41 | Progress Note ---
Provider Note Provider Note: Diagnosis = suspected cecal mass Assessment: Normal colonoscopy to cecum except for few scattered sigmoid diverticuli with no cecal mass or ileocecal valve abnormalities identified today Normal appendiceal orifice CT scan of the abdomen pelvis reviewed with the radiologist: he believes that the unprepped colon caused the overreading of a possible cecal mass. Plan: I recommended no further testing at this point Follow-up colonoscopy in 6 months to 1 year. I will sign off. Please call me with questions.
[2020-07-01] MEDS: ALPRAZOLAM 0.5 MG TABLET NG SCH ×3 (11:48→18:11)
[2020-07-01] MEDS: GUAIFENESIN 600 MG TABLET.SA PO SCH ×2 (11:50→23:10)
[2020-07-01] MEDS: ASPIRIN 81 MG TABLET, CHEWABLE NG SCH (11:50)
[2020-07-01] MEDS: CEFTRIAXONE 1 GM/D5W RTU 1 GM/50 ML RTUPB IV SCH (11:50)
[2020-07-01] MEDS: FLUTICASONE/UMECLIDIN/VILANTER 100-62.5-25 MCG/DOSE IH SCH (11:52)
[2020-07-01 12:36] LABS: HEMATOCRIT 31.3 % (36.0-47.0); HEMOGLOBIN 10.3 g/dL (12.0-15.5); MEAN CORPUSCULAR HEMOGLOBIN 27.5 pg (27.0-33.4); MEAN CORPUSCULAR VOLUME 84 fl (80-97); RED BLOOD COUNT 3.75 10^6/uL (3.72-5.28); RED CELL DISTRIBUTION WIDTH 17.3 % (11.5-14.0); WHITE BLOOD COUNT 7.6 10^3/uL (4.0-10.5)
[2020-07-01 14:36] LABS: ABSOLUTE MONOCYTES # (MANUAL) 0.2 10^3/uL (0.1-1.4); ANISOCYTOSIS 1+; BASOPHILS % (MANUAL) 0 % (0-2); EOSINOPHILS % (MANUAL) 0 % (0-6); LYMPHOCYTES % (MANUAL) 25 % (13-45); MONOCYTES % (MANUAL) 3 % (3-13); PLATELET CLUMPS PRESENT; PLATELET COMMENT ADEQUATE; SEGMENTED NEUTROPHILS % (MAN) 71 % (42-78); TOTAL CELLS COUNTED 100
[2020-07-01 14:37] LABS: PLATELET COUNT 197 10^3/uL (150-450)
--- NOTE | 2020-07-01 20:27 | PDOC PROGRESS REPORT ---
Subjective Date:: 07/01/20 Subjective:: NAEO. Reason For Visit: SEPTIC SHOCK,ALEXIS Physical Exam Vital Signs: Temp Pulse Resp BP Pulse Ox 97.9 F 77 19 109/64 94 07/01/20 16:03 07/01/20 16:03 07/01/20 16:03 07/01/20 16:03 07/01/20 16:09 Intake & Output 06/30/20 07/01/20 07/02/20 06:59 06:59 06:59 Intake Total 0821 847 1800 Output Total 2400 4520 1025 Balance -1075 -4030 295 Weight 89.7 kg 89.7 kg General appearance: PRESENT: no acute distress, cooperative Eye exam: ABSENT: scleral icterus Mouth exam: PRESENT: moist Throat exam: ABSENT: post pharyngeal erythema Neck exam: ABSENT: JVD Respiratory exam: PRESENT: rhonchi, wheezes Cardiovascular exam: PRESENT: RRR GI/Abdominal exam: PRESENT: normal bowel sounds, soft. ABSENT: tenderness Gentrourinary exam: PRESENT: indwelling catheter Neurological exam: PRESENT: alert, awake Psychiatric exam: PRESENT: appropriate affect Skin exam: ABSENT: jaundice Results Laboratory Results: 07/01/20 11:50 07/01/20 07:20 07/01/20 07/01/20 07:20 11:50 WBC 7.6 RBC 3.75 Hgb 10.3 L Hct 31.3 L MCV 84 MCH 27.5 MCHC 33.0 RDW 17.3 H Plt Count 197 Seg Neutrophils % Not Reportable Sodium 141.5 Potassium 3.7 Chloride 96 L Carbon Dioxide 37 H Anion Gap 9 BUN 18 Creatinine 0.43 L Est GFR ( Amer) > 60 Glucose 118 H Calcium 8.5 Total Bilirubin 0.4 AST 17 Alkaline Phosphatase 81 C-Reactive Protein 45.9 H Total Protein 5.6 L Albumin 2.8 L 06/30/20 10:30 Blood Blood Culture (PCR) - Final Enterococcus Species Staphylococcus Species 06/26/20 12:20 Blood Blood Culture - Final NO GROWTH IN 5 DAYS 06/26/20 06/26/20 06/26/20 12:20 20:43 20:43 Creatine Kinase < 20 L Troponin I 0.036 < 0.012 NT-Pro-B Natriuret Pep 2020 H Impressions: Chest CT 06/26/20 00:00 IMPRESSION: Bilateral pneumonia much more extensive on the right. Cannot exclude COVID-19 pneumonia although the presence of a pleural effusion is not typical. Chest X-Ray 06/26/20 12:11 IMPRESSION: Extensive right-sided airspace disease most likely viral pneumonitis. Modified Barium Swallow 06/27/20 00:00 IMPRESSION: LARYNGEAL PENETRATION AND TRACHEAL ASPIRATION ABOVE. PLEASE SEE SPEECH PATHOLOGIST REPORT FOR OTHER FINDINGS AND RECOMMENDATIONS. Abdomen/Pelvis CT 06/29/20 02:45 IMPRESSION: 1. Soft tissue polypoid mass in the cecum just below the ileocecal valve suspicious for a colon polyp or possibly malignancy. Correlation with colonoscopy is recommended. No bowel obstruction. 2. Possible additional polypoid lesion versus tumefactive stool at the hepatic flexure. This also can be evaluated with colonoscopy. 3. Mild hepatic steatosis. 4. Multifocal pneumonia with interval development of a small right pleural effusion. KUB X-Ray 06/30/20 14:00 IMPRESSION: Esophagogastric tube tip and side-hole are below the diaphragm in the stomach. Enteric contrast has progressed to the transverse and descending colon. Assessment and Plan - Diagnosis (1) Acute respiratory failure with hypoxia and hypercapnia Is this a current diagnosis for this admission?: Yes (2) Septic shock Is this a current diagnosis for this admission?: Yes (3) ALEXIS (acute kidney injury) Is this a current diagnosis for this admission?: Yes (4) NSTEMI (non-ST elevated myocardial infarction) Is this a current diagnosis for this admission?: Yes (5) Lactic acidosis Is this a current diagnosis for this admission?: Yes (6) COPD (chronic obstructive pulmonary disease) Qualifiers: COPD type: COPD with acute exacerbation Qualified Code(s): J44.1 - Chronic obstructive pulmonary disease with (acute) exacerbation Is this a current diagnosis for this admission?: Yes (7) Hypotension Qualifiers: Hypotension type: unspecified hypotension type Qualified Code(s): I95.9 - Hypotension, unspecified Is this a current diagnosis for this admission?: Yes (8) Pneumonia Qualifiers: Pneumonia type: aspiration pneumonia Laterality: right Lung location: unspecified part of lung Is this a current diagnosis for this admission?: Yes - Plan Summary Summary: TRINI NORRIS is a 60 year old female with PMH of COPD on home 2 L O2 (PRN), dysphagia, seizure disorder, and recent prolonged hospitalization at [facility] for aspiration pneumonia requiring intubation (reportedly discharged about 1 week ago) who presented to the ED with shortness of breath. She tells me that, since her discharge from [facility], she has been seeing RECREATION ESTABLISHMENT MANAGER and has been on a strict diet of mechanical soft foods with thickened fluids. She has had no known episodes of choking or coughing after eating. She tells me that she has been adhering to her diet. She has been having progressively worsening SOB and pleuritic R-sided chest pain since 06/23/2020. She has no known sick contacts. Denies fevers/chills. States that her chronic cough is unchanged from usual and she has not had productive cough. She otherwise denies abdominal pain, diarrhea, vomiting, dysuria. She reports normal oral intake at home. Acute on chronic Hypoxemic and Hypercapnic Respiratory Failure with aspiration HCA pneumonia causing septic shock and metabolic encephalopathy hypoxia improved, continue to wean O2 as tolerated continue vanco/Zosyn repeat RECREATION ESTABLISHMENT MANAGER eval requested to repeat Barium swallow study, if she continues to have aspiration, will need PEG placement continue steroids due to COPD. At baseline she is on 2L PRN, plan to wean off as tolerated. IS/PEP ordered. Encephalopathy and septic shock have resolved Dysphagia [facility] patient, no beds for transfer per family request on 06/28 type 2 [place] due to #1 RLQ abdominal pain mass suspected based on CT but colonoscopy performed on 07/01 was WNL per gen surg Mood disorder resume home seroquel Bacteremia: unclear if this is actually a contaminant continue vanc for now repeat BCx remove Bundy and central line Dispo: anticipate DC by the end of the week - Time Time Spent with patient: 35 or more minutes Anticipated Discharge Disposition: Home with Home Health Anticipated Discharge Timeframe: within 72 hours
[2020-07-01] MEDS: ATORVASTATIN CALCIUM 10 MG TABLET NG SCH (23:10)
[2020-07-01] MEDS: QUETIAPINE FUMARATE 100 MG TABLET NG SCH (23:10)
[2020-07-02] MEDS: OXYCODONE-ACETAMINOPHEN 5-325 MG TABLET NG PRN ×5 (00:50→22:25)
[2020-07-02] MEDS: VANCOMYCIN HCL 1,250 MG in DEXTROSE 5%-WATER 250 ML IV SCH ×3 (01:00→18:39)
[2020-07-02] MEDS: HEPARIN SOD (PORCINE) 5,000 UNIT/ML 1 ML VIAL SUBCUT SCH ×3 (05:42→22:24)
[2020-07-02] MEDS: LEVOTHYROXINE SODIUM 0.05 MG TABLET NG SCH (05:42)
[2020-07-02] MEDS: METHYLPREDNISOLONE INJ 125 MG/2 ML SDV IV SCH ×3 (05:42→22:26)
[2020-07-02 06:32] LABS: HEMATOCRIT 26.8 % (36.0-47.0); MEAN CORPUSCULAR HGB CONC 33.6 g/dL (32.0-36.0); MEAN CORPUSCULAR VOLUME 83 fl (80-97); PLATELET COUNT 186 10^3/uL (150-450); RED BLOOD COUNT 3.21 10^6/uL (3.72-5.28); RED CELL DISTRIBUTION WIDTH 16.9 % (11.5-14.0); WHITE BLOOD COUNT 7.2 10^3/uL (4.0-10.5)
[2020-07-02 06:49] LABS: ALBUMIN 2.6 g/dL (3.5-5.0); ALKALINE PHOSPHATASE 73 U/L (38-126); ANION GAP 6 (5-19); ASPARTATE AMINO TRANSFERASE 15 U/L (14-36); BILIRUBIN,DIRECT 0.3 mg/dL (0.0-0.4); BILIRUBIN,TOTAL 0.4 mg/dL (0.2-1.3); BLOOD UREA NITROGEN 16 mg/dL (7-20); CALCIUM 8.5 mg/dL (8.4-10.2); CARBON DIOXIDE 38 mmol/L (22-30); CHLORIDE 96 mmol/L (98-107); GLUCOSE 152 mg/dL (75-110); POTASSIUM 3.5 mmol/L (3.6-5.0); TOTAL PROTEIN 5.2 g/dL (6.3-8.2)
[2020-07-02] MEDS: IPRATROPIUM/ALBUTEROL 0.5-2.5 MG/3 ML AMPUL NEB SCH ×3 (09:09→20:16)
[2020-07-02] MEDS: ALPRAZOLAM 0.5 MG TABLET NG SCH ×3 (09:30→18:40)
[2020-07-02] MEDS: GUAIFENESIN 600 MG TABLET.SA PO SCH ×2 (09:31→22:26)
[2020-07-02] MEDS: LAMOTRIGINE 100 MG TABLET NG SCH ×2 (09:32→18:40)
[2020-07-02] MEDS: CEFTRIAXONE 1 GM/D5W RTU 1 GM/50 ML RTUPB IV SCH (09:32)
[2020-07-02 09:34] LABS: VANCOMYCIN,TROUGH 14.2 ug/mL (5.0-20.0)
[2020-07-02] MEDS: ASPIRIN 81 MG TABLET, CHEWABLE NG SCH (09:35)
[2020-07-02] MEDS: FLUTICASONE/UMECLIDIN/VILANTER 100-62.5-25 MCG/DOSE IH SCH (09:35)
[2020-07-02] MEDS ORDERED: POTASSI CL 20 MEQ/1/2NS 1L 20 MEQ/1,000 ML RTUINJ IV PRN (10:23)
--- NOTE | 2020-07-02 14:48 | RADIOLOGY REPORT (SQ) ---
EXAM DESCRIPTION: COOKIE SWALLOW IMAGES COMPLETED DATE/TIME: 07/02/2020 2:37 pm REASON FOR STUDY: dysphagia COMPARISON: Cookie swallow 06/27/2020. TECHNIQUE: Videofluoroscopic swallowing examination was performed in conjunction with speech patholo gy. Videofluoroscopic imaging was obtained and reviewed and these are the findings: RADIATION DOSE: Fluoro time 1.51 minutes 1 images saved to PACS. LIMITATIONS: None FINDINGS: The patient was brought into the fluoro room and placed upright on a modified barium swall ow chair. The patient was then given multiple consistencies mixed with barium to swallow under live fluoroscopic video guidance. According to the Speech Pathologist there was laryngeal penetration see n with thin and nectar thick consistencies. No aspiration identified. All other consistencies were swallowed without incident. Please refer to the speech pathology report for further details. IMPRESSION: LARYNGEAL PENETRATION, WITHOUT ASPIRATION, SEEN WITH THIN AND NECTAR THICK CONSISTENCIES . PLEASE SEE SPEECH PATHOLOGIST REPORT FOR OTHER FINDINGS AND RECOMMENDATIONS. COMMENT: NONE Quality ID [id number]: Final reports for procedures using fluoroscopy that document radiation exposure ab mariano, or exposure time and number of fluorographic images (if radiation exposure indices are not avail able) TECHNICAL DOCUMENTATION: JOB ID: [id number] 2010 depict- All Rights Reserved Reading location - IP/workstation name: [facility]
--- NOTE | 2020-07-02 15:54 | ST Inp Modified Barium Swallow ---
Medical Diagnosis - Medical Diagnoses Medical Diagnosis Description & ICD-10 Code(s): dysphagia R13.10 - ICD-10 Tx Diagnosis Coding (1) Dysphagia, pharyngeal phase ICD-10 Code(s): R13.13 - DYSPHAGIA, PHARYNGEAL PHASE (2) ALEXIS (acute kidney injury) ICD-10 Code(s): N17.9 - ACUTE KIDNEY FAILURE, UNSPECIFIED (3) Acute respiratory failure with hypoxia and hypercapnia ICD-10 Code(s): J96.01 - ACUTE RESPIRATORY FAILURE WITH HYPOXIA; J96.02 - ACUTE RESPIRATORY FAILURE WITH HYPERCAPNIA (6) Lactic acidosis ICD-10 Code(s): E87.2 - ACIDOSIS (7) NSTEMI (non-ST elevated myocardial infarction) ICD-10 Code(s): I21.4 - NON-ST ELEVATION (NSTEMI) MYOCARDIAL INFARCTION (8) Pneumonia ICD-10 Code(s): J18.9 - PNEUMONIA, UNSPECIFIED ORGANISM (9) Septic shock ICD-10 Code(s): A41.9 - SEPSIS, UNSPECIFIED ORGANISM; R65.21 - SEVERE SEPSIS WITH SEPTIC SHOCK Inpatient MBS - General Date: 07/02/20 - History History Obtained From: Other - EMR Medical History: Completing repeat MBSS at patient & family request prior to PEG placement. Patient had prolonged intubation and was discharged from [facility] with recommendation for nectar thick liquids and mechanical soft solids. Today, patient verrbalized "I cheated a little bit" regarding adhering to diet. [facility] with recommendations for mechanical soft solids but no liquids due to aspiration and due to getting pneumonia while on thick liquids. Patient reports had been receiving home health speech therapy with [facility] prior to hospital admission. Medications: Medications Reviewed Allergies: No known allergies - Subjective Current Nutritional Means: PO Current PO Diet: Mechanical- ground - NO LIQUIDS Current Symptoms: Pneumonia Pain: 0/5 - Objective Assessment: Upright, Left Lateral - Food Trials Food Trials Used: Thin liquids, Honey-thickened liquids, Garvin thick liquids, Pureed, Regular The Patient: Was Able to Self Feed - Assessment Labial Function: Within Functional Limits Lingual Function: Within Functional Limits Mandibular Function: Within Functional Limits - Pharyngeal Stage Initiation of Pharyngeal Stage: Normal Pahryngeal Stage Comments: Patient presents with reduced pharyngeal motion including base of tongue, pharyngeal squeeze, and reduced closure of laryngeal vestibule. She demonstrated penetration on thin liquids and nectar thick liquids, but no aspiration. She did not aspirate or penetrate on honey thick liquids during MBSS. No noted impairment with puree and very minimal residuals with regular that cleared with repeat swallow. - Impression/Summary Laryngeal Penetration: Yes Tracheal Aspiration: no Ineffective Compensatory Strategies: chin tuck - trialed but did not reduce penetration Patient Presents With: Pharyngeal stage dysph. - resulting in penetration of thin & nectar thick liquids Risk of Aspiration: Severe Risk of Nutritional Compromise: Severe - Recommendations NPO: no Solid Diet Recommendations: Mechanical Soft, Ground Meat Liquid Diet Recommendations: Honey-Thick Strict Aspitarion Precautions: Yes Dysphagia Therapy with DIGITAL SOLUTIONS ARCHITECT: Yes - appropriate for outpatient or home health Recommended Techniques: Fully Upright During Meal, Small Bites and Sips, Alternate Bites/Sips Supervision: Distant Other Recommendations: DIET RECOMMENDATIONS: Honey thick liquids by cup or spoon only (no straws); mechanical soft solids (avoid nuts, seeds, or skins). Extensive education to patient, both verbal and written recommendations. Patient asked appropriate questions about diet recommendations and foods allowed. Patient was given information on gel-based thickeners as she would like to drink Pepsi. While honey thick liquids recommended, patient may be able to tolerate nectar or thin as only penetrating, however with history of pneumonia while on thickened liquids, ST chose to be conservative in recommendation. Patient may trial thin or nectar in therapy with ST and will likely benefit from repeat MBSS in 4-6 weeks to determine if diet can be upgraded further. Results and recommendations were communicated to Dr Marroquin who was in agreement with diet recommendations and provided telephone order for upgrade. - Time Total Time: 20 Total Timed Minutes: 0
--- NOTE | 2020-07-02 20:57 | PDOC PROGRESS REPORT ---
Subjective Date:: 07/02/20 Subjective:: NAEO. She is back on her home 2 L O2 via [place]. Reason For Visit: SEPTIC SHOCK,ALEXIS Physical Exam Vital Signs: Temp Pulse Resp BP Pulse Ox 97.9 F 71 18 135/76 H 92 07/02/20 16:41 07/02/20 20:17 07/02/20 20:17 07/02/20 16:41 07/02/20 20:17 Intake & Output 07/01/20 07/02/20 07/03/20 06:59 06:59 06:59 Intake Total 490 1820 1360 Output Total 4520 1025 Balance -4030 795 1360 Weight 89.7 kg 90.9 kg 90.9 kg General appearance: PRESENT: no acute distress, cooperative Eye exam: ABSENT: scleral icterus Mouth exam: PRESENT: moist Throat exam: ABSENT: post pharyngeal erythema Neck exam: ABSENT: JVD Respiratory exam: PRESENT: rhonchi. ABSENT: crackles, wheezes Cardiovascular exam: PRESENT: RRR GI/Abdominal exam: PRESENT: normal bowel sounds, soft. ABSENT: tenderness Gentrourinary exam: ABSENT: indwelling catheter Neurological exam: PRESENT: alert, awake Psychiatric exam: PRESENT: appropriate affect Skin exam: ABSENT: jaundice Results Laboratory Results: 07/02/20 06:17 07/02/20 08:57 07/02/20 07/02/20 07/02/20 06:17 06:17 08:57 WBC 7.2 RBC 3.21 L Hgb 9.0 L Hct 26.8 L MCV 83 MCH 28.0 MCHC 33.6 RDW 16.9 H Plt Count 186 Sodium 140.4 Potassium 3.5 L Chloride 96 L Carbon Dioxide 38 H Anion Gap 6 BUN 16 Creatinine 0.58 0.60 Est GFR ( Amer) > 60 > 60 Glucose 152 H Calcium 8.5 Magnesium 1.8 Total Bilirubin 0.4 AST 15 Alkaline Phosphatase 73 Total Protein 5.2 L Albumin 2.6 L 06/30/20 10:30 Blood Blood Culture (PCR) - Final Enterococcus Species Staphylococcus Species 06/26/20 06/26/20 06/26/20 12:20 20:43 20:43 Creatine Kinase < 20 L Troponin I 0.036 < 0.012 NT-Pro-B Natriuret Pep 2020 H Impressions: Chest CT 06/26/20 00:00 IMPRESSION: Bilateral pneumonia much more extensive on the right. Cannot exclude COVID-19 pneumonia although the presence of a pleural effusion is not typical. Chest X-Ray 06/26/20 12:11 IMPRESSION: Extensive right-sided airspace disease most likely viral pneumon itis. Abdomen/Pelvis CT 06/29/20 02:45 IMPRESSION: 1. Soft tissue polypoid mass in the cecum just below the ileocecal valve suspicious for a colon polyp or possibly malignancy. Correlation with colonoscopy is recommended. No bowel obstruction. 2. Possible additional polypoid lesion versus tumefactive stool at the hepatic flexure. This also can be evaluated with colonoscopy. 3. Mild hepatic steatosis. 4. Multifocal pneumonia with interval development of a small right pleural effusion. KUB X-Ray 06/30/20 14:00 IMPRESSION: Esophagogastric tube tip and side-hole are below the diaphragm in the stomach. Enteric contrast has progressed to the transverse and descending colon. Modified Barium Swallow 07/02/20 00:00 IMPRESSION: LARYNGEAL PENETRATION, WITHOUT ASPIRATION, SEEN WITH THIN AND NECTAR THICK CONSISTENCIES. PLEASE SEE SPEECH PATHOLOGIST REPORT FOR OTHER FINDINGS AND RECOMMENDATIONS. Assessment and Plan - Diagnosis (1) Acute respiratory failure with hypoxia and hypercapnia Is this a current diagnosis for this admission?: Yes (2) Septic shock Is this a current diagnosis for this admission?: Yes (3) ALEXIS (acute kidney injury) Is this a current diagnosis for this admission?: Yes (4) NSTEMI (non-ST elevated myocardial infarction) Is this a current diagnosis for this admission?: Yes (5) Lactic acidosis Is this a current diagnosis for this admission?: Yes (6) COPD (chronic obstructive pulmonary disease) Qualifiers: COPD type: COPD with acute exacerbation Qualified Code(s): J44.1 - Chronic obstructive pulmonary disease with (acute) exacerbation Is this a current diagnosis for this admission?: Yes (7) Hypotension Qualifiers: Hypotension type: unspecified hypotension type Qualified Code(s): I95.9 - Hypotension, unspecified Is this a current diagnosis for this admission?: Yes (8) Pneumonia Qualifiers: Pneumonia type: aspiration pneumonia Laterality: right Lung location: unspecified part of lung Is this a current diagnosis for this admission?: Yes - Plan Summary Summary: TRINI NORRIS is a 60 year old female with PMH of COPD on home 2 L O2 (PRN), dysphagia, seizure disorder, and recent prolonged hospitalization at [facility] for aspiration pneumonia requiring intubation (reportedly discharged about 1 week ago) who presented to the ED with shortness of breath. She tells me that, since her discharge from [facility], she has been seeing DIRECTOR OF PREMIUM SEAT SALES and has been on a strict diet of mechanical soft foods with thickened fluids. She has had no known episodes of choking or coughing after eating. She tells me that she has been adhering to her diet. She has been having progressively worsening SOB and pleuritic R-sided chest pain since 06/23/2020. She has no known sick contacts. Denies fevers/chills. States that her chronic cough is unchanged from usual and she has not had productive cough. She otherwise denies abdominal pain, diarrhea, vomiting, dysuria. She reports normal oral intake at home. Acute on chronic Hypoxemic and Hypercapnic Respiratory Failure with aspiration HCA pneumonia causing septic shock and metabolic encephalopathy hypoxia improved, continue to wean O2 as tolerated continue vanco/Zosyn repeat DIRECTOR OF PREMIUM SEAT SALES eval requested to repeat Barium swallow study, which she passed on 07/02 continue steroids due to COPD. At baseline she is on 2L PRN, plan to wean off as tolerated. IS/PEP ordered. Encephalopathy and septic shock have resolved Dysphagia [facility] patient, no beds for transfer per family request on 06/28 type 2 [place] due to #1 RLQ abdominal pain mass suspected based on CT but colonoscopy performed on 07/01 was WNL per gen surg Mood disorder resume home seroquel Bacteremia: unclear if this is actually a contaminant continue vanc for now repeat BCx remove Bundy and central line Dispo: anticipate DC home with home health tomorrow - Time Time Spent with patient: 35 or more minutes Anticipated Discharge Disposition: Home with Home Health Anticipated Discharge Timeframe: within 24 hours
[2020-07-02] MEDS: ATORVASTATIN CALCIUM 10 MG TABLET NG SCH (22:25)
[2020-07-02] MEDS: QUETIAPINE FUMARATE 100 MG TABLET NG SCH (22:26)
[2020-07-03] MEDS: VANCOMYCIN HCL 1,250 MG in DEXTROSE 5%-WATER 250 ML IV SCH ×2 (02:00→09:51)
[2020-07-03] MEDS: OXYCODONE-ACETAMINOPHEN 5-325 MG TABLET NG PRN ×2 (02:00→06:03)
[2020-07-03] MEDS ORDERED: PANTOPRAZOLE SODIUM 40 MG TABLET.DR PO SCH ×2 (06:00)
[2020-07-03] MEDS: HEPARIN SOD (PORCINE) 5,000 UNIT/ML 1 ML VIAL SUBCUT SCH (06:02)
[2020-07-03] MEDS: METHYLPREDNISOLONE INJ 125 MG/2 ML SDV IV SCH (06:04)
[2020-07-03] MEDS: LEVOTHYROXINE SODIUM 0.05 MG TABLET NG SCH (06:05)
[2020-07-03] MEDS: IPRATROPIUM/ALBUTEROL 0.5-2.5 MG/3 ML AMPUL NEB SCH (07:50)
[2020-07-03] MEDS: CEFTRIAXONE 1 GM/D5W RTU 1 GM/50 ML RTUPB IV SCH (09:51)
[2020-07-03] MEDS: GUAIFENESIN 600 MG TABLET.SA PO SCH (09:51)
[2020-07-03] MEDS: ALPRAZOLAM 0.5 MG TABLET NG SCH (09:51)
[2020-07-03] MEDS: ASPIRIN 81 MG TABLET, CHEWABLE NG SCH (09:51)
[2020-07-03] MEDS: LAMOTRIGINE 100 MG TABLET NG SCH (09:52)
[2020-07-03] MEDS: FLUTICASONE/UMECLIDIN/VILANTER 100-62.5-25 MCG/DOSE IH SCH (09:52)
[2020-07-03 11:25] VITALS: BP 170/89
--- NOTE | 2020-07-03 20:45 | PDOC DISCHARGE SUMMARY ---
Impression - Admit/DC Date/PCP Admission Date/Primary Care Provider: 06/26/20 15:17 Discharge Date: 07/03/20 - Discharge Diagnosis (1) Acute respiratory failure with hypoxia and hypercapnia Is this a current diagnosis for this admission?: Yes (2) Septic shock Is this a current diagnosis for this admission?: Yes (3) ALEXIS (acute kidney injury) Is this a current diagnosis for this admission?: Yes (4) NSTEMI (non-ST elevated myocardial infarction) Is this a current diagnosis for this admission?: Yes (5) Lactic acidosis Is this a current diagnosis for this admission?: Yes (6) COPD (chronic obstructive pulmonary disease) Is this a current diagnosis for this admission?: Yes (7) Hypotension Is this a current diagnosis for this admission?: Yes (8) Pneumonia Is this a current diagnosis for this admission?: Yes - Assessment Summary: TRINI NORRIS is a 60 year old female with PMH of COPD on home 2 L O2 (PRN), dysphagia, seizure disorder, and recent prolonged hospitalization at [facility] for aspiration pneumonia requiring intubation (reportedly discharged about 1 week ago) who presented to the ED with shortness of breath. She tells me that, since her discharge from [facility], she has been seeing [facility] and has been on a strict diet of mechanical soft foods with thickened fluids. She has had no known episodes of choking or coughing after eating. She tells me that she has been adhering to her diet. She has been having progressively worsening SOB and pleuritic R-sided chest pain since 06/23/2020. She has no known sick contacts. Denies fevers/chills. Acute on chronic Hypoxemic and Hypercapnic Respiratory Failure Aspiration Pneumonia HCAP causing septic shock and metabolic encephalopathy hypoxia improved, and she was weaned down to 2 L O2 via NC (her home dose) prior to discharge Dysphagia: repeat [facility] evaluation performed on 07/02 showed no aspiration on honey-thickened liquids and mechanical soft foods. She was already followed by [facility] as outpatient prior to this hospitalization, and has a planned esophageal dilation with GI in 1 week. She will have repeat Barium Swallow Study as outpatient in 4-6 weeks. RLQ abdominal pain: mass suspected based on CT A/P, but colonoscopy performed on 07/01 was WNL. - Additional Information Resuscitation Status: Full Code Discharge Diet: Other (Comments) Discharge Activity: Activity As Tolerated Referrals: AMANUEL BARNHART PA [NO LOCAL MD] - 07/09/20 2:00 pm Prescriptions: Amoxicillin/Potassium Clav [Augmentin 875-125 Tablet] 1 tab PO Q12 #14 tablet Home Medications: Albuterol Sulfate [Proair HFA Inhalation Aerosol 8.5 gm MDI] 2 puff IH Q6HP PRN 06/26/20 Alprazolam 1 mg PO TIDP PRN 06/26/20 Aspirin 81 mg PO DAILY 06/26/20 Fluticasone/Umeclidin/Vilanter [Trelegy 100-62.5-25 Mcg Ellipta 14 Dose/Dpi] 1 puff IH DAILY 06/26/20 Lamotrigine 100 mg PO QAM 06/26/20 Lamotrigine 150 mg PO QPM 06/26/20 Levothyroxine Sodium [Levothyroxine] 50 mcg PO DAILY 06/26/20 Pantoprazole Sodium 40 mg PO DAILY 06/26/20 Pravastatin Sodium 40 mg PO QHS 06/26/20 Quetiapine Fumarate [Seroquel] 100 mg PO QHS 06/26/20 Amoxicillin/Potassium Clav [Augmentin 875-125 Tablet] 1 tab PO Q12 #14 tablet 07/03/20 History of Present Illiness History of Present Illness: TRINI NORRIS is a 60 year old female with PMH of COPD on home 2 L O2 (PRN), dysphagia, seizure disorder, and recent prolonged hospitalization at [facility] for aspiration pneumonia requiring intubation (reportedly discharged about 1 week ago) who presented to the ED with shortness of breath. She tells me that, since her discharge from [facility], she has been seeing [facility] and has been on a strict diet of mechanical soft foods with thickened fluids. She has had no known episodes of choking or coughing after eating. She tells me that she has been adhering to her diet. She has been having progressively worsening SOB and pleuritic R-sided chest pain since 06/23/2020. She has no known sick contacts. Denies fevers/chills. States that her chronic cough is unchanged from usual and she has not had productive cough. She otherwise denies abdominal pain, diarrhea, vomiting, dysuria. She reports normal oral intake at home. Today, she felt like she just could not catch her breath so she called EMS. Per EMS, she was found to have a pulse ox of 50% on room air on their arrival, so she was placed on non-rebreather, but pulse ox only came up to the high 60s, so she was then placed on CPAP. EMS also started her on Levophed due to hypotension. Upon arrival to the ED, she was in severe acute respiratory distress, and was placed on BIPAP. Initially, her BP was 90/60, so she was referred to the hospitalist service for admission, but upon my arrival, her BP was 60/30. She was started on sepsis protocol IVF hydration and Levophed was ordered but never started. Her BPs have since improved to 80/40 (MAP 50). ABG has improved with BIPAP as has her mentation, but her lactate has remained unchanged ~6. No other laboratory studies have been rechecked during her stay in the ED. BCx and UCx are pending. She received vancomycin/cefepime, Solu-Medrol and 3 L IVF. Physical Exam Vital Signs: Temp Pulse Resp BP Pulse Ox 97.5 F 75 12 98/60 L 96 07/03/20 10:18 07/03/20 10:18 07/03/20 10:18 07/03/20 10:18 07/03/20 10:18 Intake & Output 07/02/20 07/03/20 07/04/20 06:59 06:59 06:59 Intake Total 1820 1860 300 Output Total 1025 Balance 795 1860 300 Weight 90.9 kg 91.5 kg Results Laboratory Results: WBC 7.2 10^3/uL (4.0-10.5) 07/02/20 06:17 RBC 3.21 10^6/uL (3.72-5.28) L 07/02/20 06:17 Hgb 9.0 g/dL (12.0-15.5) L 07/02/20 06:17 Hct 26.8 % (36.0-47.0) L 07/02/20 06:17 MCV 83 fl (80-97) 07/02/20 06:17 MCH 28.0 pg (27.0-33.4) 07/02/20 06:17 MCHC 33.6 g/dL (32.0-36.0) 07/02/20 06:17 RDW 16.9 % (11.5-14.0) H 07/02/20 06:17 Plt Count 186 10^3/uL (150-450) 07/02/20 06:17 Lymph % (Auto) Not Reportable 07/01/20 11:50 [place] % (Auto) Not Reportable 07/01/20 11:50 Eos % (Auto) Not Reportable 07/01/20 11:50 Baso % (Auto) Not Reportable 07/01/20 11:50 Absolute Neuts (auto) Not Reportable 07/01/20 11:50 Absolute Lymphs (auto) Not Reportable 07/01/20 11:50 Absolute Monos (auto) Not Reportable 07/01/20 11:50 Absolute Eos (auto) Not Reportable 07/01/20 11:50 Absolute Basos (auto) Not Reportable 07/01/20 11:50 Total Counted 100 07/01/20 11:50 Seg Neutrophils % Not Reportable 07/01/20 11:50 Seg Neuts % (Manual) 71 % (42-78) 07/01/20 11:50 Lymphocytes % (Manual) 25 % (13-45) 07/01/20 11:50 Atypical Lymphs % 1 % (0) 07/01/20 11:50 Monocytes % (Manual) 3 % (3-13) 07/01/20 11:50 Eosinophils % (Manual) 0 % (0-6) 07/01/20 11:50 Basophils % (Manual) 0 % (0-2) 07/01/20 11:50 Abs Neuts (Manual) 5.4 10^3/uL (1.7-8.2) 07/01/20 11:50 Abs Lymphs (Manual) 2.0 10^3/uL (0.5-4.7) 07/01/20 11:50 Abs Monocytes (Manual) 0.2 10^3/uL (0.1-1.4) 07/01/20 11:50 Absolute Eos (Manual) 0.0 10^3/uL (0.0-0.6) 07/01/20 11:50 Abs Basophils (Manual) 0.0 10^3/uL (0.0-0.2) 07/01/20 11:50 Clumped Platelets PRESENT 07/01/20 11:50 Platelet Comment ADEQUATE 07/01/20 11:50 Anisocytosis 1+ 07/01/20 11:50 Ovalocytes SLIGHT 06/30/20 05:55 ESR 33 mm/hr (0-30) H 06/26/20 20:43 PT 16.4 SEC (11.4-15.4) H 06/26/20 12:20 INR 1.30 06/26/20 12:20 D-Dimer 7.39 ug/mL (0.00-0.50) H 06/26/20 20:43 Carbonic Acid 1.29 mmol/L (1.05-1.35) 06/26/20 14:05 HCO3/H2CO3 Ratio 15:1 06/26/20 14:05 ABG pH 7.29 (7.35-7.45) L 06/26/20 14:05 ABG pCO2 42.9 mmHg (35-45) 06/26/20 14:05 ABG pO2 141.6 mmHg (80-100) H 06/26/20 14:05 ABG HCO3 19.9 mmol/L (20-24) L 06/26/20 14:05 ABG Total CO2 21.3 mmol/L (21-25) 06/26/20 14:05 ABG O2 Saturation 98.5 % (94-98) H 06/26/20 14:05 ABG Base Excess -6.4 mmol/L 06/26/20 14:05 VBG pH 7.21 (7.30-7.42) L 06/26/20 20:43 VBG pCO2 51.7 mmHg (35-63) 06/26/20 20:43 VBG HCO3 20.3 mmol/L (20-32) 06/26/20 20:43 VBG Base Excess -7.5 mmol/L 06/26/20 20:43 FiO2 100% 06/26/20 14:05 Sodium 140.4 mmol/L (137-145) 07/02/20 06:17 Potassium 3.5 mmol/L (3.6-5.0) L 07/02/20 06:17 Chloride 96 mmol/L (98-107) L 07/02/20 06:17 Carbon Dioxide 38 mmol/L (22-30) H 07/02/20 06:17 Anion Gap 6 (5-19) 07/02/20 06:17 BUN 16 mg/dL (7-20) 07/02/20 06:17 Creatinine 0.60 mg/dL (0.52-1.25) 07/02/20 08:57 Est GFR ( Amer) > 60 (>60) 07/02/20 08:57 Est GFR (MDRD) Non-Af > 60 (>60) 07/02/20 08:57 Glucose 152 mg/dL (75-110) H 07/02/20 06:17 POC Glucose 139 mg/dL (70-110) H 07/02/20 06:57 Lactic Acid 1.6 mmol/L (0.7-2.1) 06/28/20 06:16 Calcium 8.5 mg/dL (8.4-10.2) 07/02/20 06:17 Phosphorus 2.5 mg/dL (2.5-4.5) 06/28/20 06:16 Magnesium 1.8 mg/dL (1.6-2.3) 07/02/20 06:17 Ferritin 80.80 ng/mL (11.1-264.0) 06/26/20 20:43 Total Bilirubin 0.4 mg/dL (0.2-1.3) 07/02/20 06:17 Direct Bilirubin 0.3 mg/dL (0.0-0.4) 07/02/20 06:17 Neonat Total Bilirubin Not Reportable 07/02/20 06:17 Neonat Direct Bilirubin Not Reportable 07/02/20 06:17 Neonat Indirect Bili Not Reportable 07/02/20 06:17 AST 15 U/L (14-36) 07/02/20 06:17 ALT 14 U/L (<35) 07/02/20 06:17 Alkaline Phosphatase 73 U/L (38-126) 07/02/20 06:17 Lactate Dehydrogenase 201 U/L (120-246) 06/26/20 20:43 Creatine Kinase < 20 U/L (30-135) L 06/26/20 20:43 Troponin I < 0.012 ng/mL 06/26/20 20:43 C-Reactive Protein 45.9 mg/L (<10.0) H 07/01/20 07:20 NT-Pro-B Natriuret Pep 2020 pg/mL (<125) H 06/26/20 12:20 Total Protein 5.2 g/dL (6.3-8.2) L 07/02/20 06:17 Albumin 2.6 g/dL (3.5-5.0) L 07/02/20 06:17 TSH 2.15 uIU/mL (0.47-4.68) 06/28/20 06:16 Random Cortisol 21.50 ug/dL (None Established) 06/26/20 20:43 Urine Color DARK YELLOW 06/26/20 14:15 Urine Appearance CLOUDY 06/26/20 14:15 Urine pH 5.0 (5.0-9.0) 06/26/20 14:15 Ur Specific [place] 1.020 06/26/20 14:15 Urine Protein 100 mg/dL (NEGATIVE) H 06/26/20 14:15 Urine Glucose (UA) NEGATIVE mg/dL (NEGATIVE) 06/26/20 14:15 Urine Ketones NEGATIVE mg/dL (NEGATIVE) 06/26/20 14:15 Urine Blood NEGATIVE (NEGATIVE) 06/26/20 14:15 Urine Nitrite (Reflex) NEGATIVE (NEGATIVE) 06/26/20 14:15 Urine Bilirubin NEGATIVE (NEGATIVE) 06/26/20 14:15 Urine Urobilinogen NEGATIVE mg/dL (<2.0) 06/26/20 14:15 Leukocyte Esterase Rfl TRACE (NEGATIVE) H 06/26/20 14:15 Urine RBC (Auto) 4 /HPF 06/26/20 14:15 U Hyaline Cast (Auto) 51 /LPF 06/26/20 14:15 Urine Bacteria (Auto) TRACE /HPF 06/26/20 14:15 Urine WBC (Reflex) 7 /HPF 06/26/20 14:15 Squamous Epi Cells Auto 1 /HPF 06/26/20 14:15 Urine Mucus (Auto) MANY /LPF 06/26/20 14:15 Urine Ascorbic Acid NEGATIVE (NEGATIVE) 06/26/20 14:15 Time Trough Drawn 0857 07/02/20 08:57 Vancomycin Trough 14.2 ug/mL (5.0-20.0) 07/02/20 08:57 COVID-19 Source Cancelled 06/26/20 12:58 COVID-19 (MEGAN) Cancelled 06/26/20 12:58 Influenza A (Rapid) NEGATIVE (NEGATIVE) 06/26/20 12:58 Influenza A (RT-PCR) NEGATIVE (NEGATIVE) 06/26/20 12:58 Influenza B (Rapid) NEGATIVE (NEGATIVE) 06/26/20 12:58 Influenza B (RT-PCR) NEGATIVE (NEGATIVE) 06/26/20 12:58 RSV (RT-PCR) NEGATIVE (NEGATIVE) 06/26/20 12:58 SARS-CoV-2 Rap RNA(RT-PCR) NEGATIVE (NEGATIVE) 06/26/20 12:58 06/26/20 12 12:20 20:43 Troponin I 0.036 < 0.012 NT-Pro-B Natriuret Pep 2020 H Impressions: Chest CT 06/26/20 00:00 IMPRESSION: Bilateral pneumonia much more extensive on the right. Cannot exclude COVID-19 pneumonia although the presence of a pleural effusion is not typical. Chest X-Ray 06/26/20 00:00 IMPRESSION: Interval placement a right-sided central line as described. No pneumothorax. Persistent diffuse right-sided airspace disease. Chest X-Ray 06/26/20 12:11 IMPRESSION: Extensive right-sided airspace disease most likely viral pneumonitis. Modified Barium Swallow 06/27/20 00:00 IMPRESSION: LARYNGEAL PENETRATION AND TRACHEAL ASPIRATION ABOVE. PLEASE SEE SPEECH PATHOLOGIST REPORT FOR OTHER FINDINGS AND RECOMMENDATIONS. Abdomen/Pelvis CT 06/29/20 02:45 IMPRESSION: 1. Soft tissue polypoid mass in the cecum just below the ileocecal valve suspicious for a colon polyp or possibly malignancy. Correlation with colonoscopy is recommended. No bowel obstruction. 2. Possible additional polypoid lesion versus tumefactive stool at the hepatic flexure. This also can be evaluated with colonoscopy. 3. Mild hepatic steatosis. 4. Multifocal pneumonia with interval development of a small right pleural effusion. KUB X-Ray 06/30/20 14:00 IMPRESSION: Esophagogastric tube tip and side-hole are below the diaphragm in the stomach. Enteric contrast has progressed to the transverse and descending colon. Modified Barium Swallow 07/02/20 00:00 IMPRESSION: LARYNGEAL PENETRATION, WITHOUT ASPIRATION, SEEN WITH THIN AND NECTAR THICK CONSISTENCIES. PLEASE SEE SPEECH PATHOLOGIST REPORT FOR OTHER FINDINGS AND RECOMMENDATIONS. Stroke Is this a Stroke Patient?: No Acute Heart Failure Is this a Heart Failure Patient?: No
== END 2020-07-03 11:40 | disposition home health service (06) | DRG 871 ==
LOC: EDBD → ER 12:05 → EH 15:17 → 5 06-27 03:00
PROVIDERS: ADMIT Internal Medicine; ATTEND Hospitalist
PROC: 02HV33Z Insertion of Infusion Device into Superior Vena Cava, Percutaneous Approach (ICD-10-PCS; principal; 2020-06-26)
PROC: 5A09457 Assistance with Respiratory Ventilation, 24-96 Consecutive Hours, Continuous Positive Airway Pressure (ICD-10-PCS; 2020-06-26)
PROC: 0DBK8ZX Excision of Ascending Colon, Via Natural or Artificial Opening Endoscopic, Diagnostic (ICD-10-PCS; 2020-07-01 09:00)
DX: A41.01 Sepsis due to Methicillin susceptible Staphylococcus aureus (principal); R65.21 Severe sepsis with septic shock; J69.0 Pneumonitis due to inhalation of food and vomit; J96.22 Acute and chronic respiratory failure with hypercapnia; J96.21 Acute and chronic respiratory failure with hypoxia; G93.41 Metabolic encephalopathy; I21.4 Non-ST elevation (NSTEMI) myocardial infarction; J44.1 Chronic obstructive pulmonary disease with (acute) exacerbation; J44.0 Chronic obstructive pulmonary disease with (acute) lower respiratory infection; K57.32 Diverticulitis of large intestine without perforation or abscess without bleeding; Z99.81 Dependence on supplemental oxygen; R13.10 Dysphagia, unspecified; G40.909 Epilepsy, unspecified, not intractable, without status epilepticus; E78.5 Hyperlipidemia, unspecified; K21.9 Gastro-esophageal reflux disease without esophagitis; R10.31 Right lower quadrant pain; Z20.828 Contact with and (suspected) exposure to other viral communicable diseases; E03.9 Hypothyroidism, unspecified; Z90.49 Acquired absence of other specified parts of digestive tract; Z79.82 Long term (current) use of aspirin; Z79.51 Long term (current) use of inhaled steroids; F39 Unspecified mood [affective] disorder; Z79.899 Other long term (current) drug therapy; Z87.891 Personal history of nicotine dependence
CPT/HCPCS: 00811; 36415; 45380; 45381; 71045; 71250; 74018; 74177; 74230; 80053; 80202; 81001; 82533; 82550; 82565; 82728; 82803; 82962; 83605; 83615; 83735; 83880; 84100; 84443; 84484; 85025; 85027; 85379; 85610; 85652; 86140; 87040; 87070; 87077; 87086; 87150; 87186; 87804; 88305; 93005; 93010; 94660; 94667; 94668; 94799; 96365; 96368; 96372; 96375; 99285; 0241U; C9803; J0171; J0692; J0696; J1642; J1644; J2270; J2405; J2543; J2704; J2930; J3105; J3370; J3475; J3480; J3490; J7030; J7050; J7060; J7120